=== PATIENT | female | born 1950 | race Caucasian/White ===

== ENCOUNTER 2024-10-25 13:59 | Emergency (ER) | payer MEDICARE, SELFPAY ==
--- OUTSIDE RECORDS SUMMARY | 2024-10-25 14:09 | XMS_ITS | Clinical Summary ---
Author Organization [facility] Address [address] [place] [address] Phone Care Team Providers Care Secretary Board Of Commissioners Name Role Phone Dorian Barbour MD Primary Care Provider [phone] Lewis Guy MD Unavailable Allergies No known active allergies Medications levothyroxine (SYNTHROID) 150 MCG Tablet Take 150 mcg by mouth daily. Active traMADol (ULTRAM) 50 MG Tablet Take 50 mg by mouth every 6 hours as needed for Pain. Active Mometasone Furo-Formoterol Fum (DULERA) 200-5 MCG/ACT Aerosol take 2 Puffs by inhalation 2 times daily. 1 Inhaler 5 6 Active Additional Information Patient not taking.Reported on 06/25/2023 Omeprazole 20 MG Tablet Delayed Response Take by mouth. Activ e gabapentin (NEURONTIN) 300 MG Capsule Take 300 mg by mouth 3 times daily. Active Bismuth 262 MG Chewable Tablet 3 PO QID FOR 10 DAYS 120 Tab 9 Active OXYGEN CONCENTRATOR 3 L by Does not apply route. Use as directed Active clobetasol (TEMOVATE) 0.05 % Cream Apply 2 times daily. Application Site Active albuterol (PROVENTIL, VENTOLIN) (2.5 MG/3ML) 0.083% Nebulizer SolnIndications: Centrilobular emphysema (HCC) 3 mL by Nebulization route every 4 hours as needed for Wheezing, Shortness of Breath or Cough. 360 mL 6 4 Active Kerendia 10 MG Tablet Take 1 Tablet by mouth daily. Active warfarin (COUMADIN) 3 MG Tablet Take 1 Tablet by mouth daily. HOLD dose 02/10, then resume on 02/11. Get INR check on 02/12 90 Tablet 4 Active furosemide (LASIX) 40 MG Tablet Take 1 Tablet by mouth daily. 90 Tablet 4 Active Fluticasone-Umec lidin-Vilant (Trelegy Ellipta) 100-62.5-25 MCG/ACT AEROSOL POWDER, BREATH ACTIVATEDIndicat ions:Centrilobul ar emphysema (HCC) take 1 Puff by inhalation daily. 5 Active Active Problems Problem Noted Date Diagnosed Date Chronic respiratory failure with hypoxia 017 Centrilobular emphysema 01/04/2016 Chronic diastolic congestive heart failure 01/03 Morbid obesity due to excess calories 01/04/2016 Atrial flutter 01/04/2016 SOB (shortness of breath) 01/04/2016 HEAVEN (obstructive sleep apnea) 01/04/2016 Resolved Problems Problem Noted Date Diagnosed Date Resolved Date COPD exacerbation 02/11/2024 02/11/2024 Pneumonia 02/11/2024 02/11/2024 Acute on chronic respiratory failure with hypoxia and hypercapnia 02/09/2024 02/11/2024 Immunizations Immunization Administration Dates Next Due Pneumococcal conjugate PCV20 , polysaccharide GBL801 conjugate, adjuvant, PF 02/11/2024 Family History Medical History Relation Name Comments Lung Cancer Brother Cancer Mother liver Breast Cancer Sister 1 Colon Cancer Sister 2 Relation Name Status Comments Brother Mother Sister 1 Sister 2 Social History Tobacco Use Types Packs/Day Years Used Date Smoking Tobacco: Never Smokeless Tobacco: Never Tobacco Cessation:Counseling Given: No Alcohol Use Standard Drinks/Week Comments Yes 0 (1 standard drink = 0.6 oz pur e alcohol) [facility] Utilities Answer Date Recorded In the past 12 months has [employer], [employer], oil, or water [employer] threatened to shut off services in your home? No 02/09/2024 Social Connection and Isolation Panel Answer Date Recorded In a typical week, how many times do you talk on the phone with family, friends, or neighbors? More than three times a week 02/09/2024 How often do you get togethe r with friends or relatives? Never 02/09/2024 How often do you attend chur ch or voodoo services? Never 02/09/2024 Do you belong to any clubs o r organizations such as bahai groups, unions, fraternal or athletic groups, or school groups? No 02/09/2024 How often do you attend meet ings of the clubs or organizations you belong to? Never 02/09/2024 Are you , , di vorced, , never , or living with a partner? 02/09/2024 AUDIT-C Answer Date Recorded Q1: How often do you have a drink containing alc ohol? Monthly or less 02/09/2024 Q2: How many drinks containi ng alcohol do you have on a typical day when you are drinking? 1 or 2 02/09/2024 Q3: How often do you have si x or more drinks on one occasion? Never 02/09/2024 Overall Financial Resource Strain (CARDIA) Answe r Date Recorded How hard is it for you to pa y for the very basics like food, housing, medical care, and heating? Not hard at all 02/09/2024 [facility] - Occupational Stress Questionnaire Answer Date Recorded Do you feel stress - tense, restless, nervous, or anxious, or unable to sleep at night because your mind is troubled all the time - these days? Not at all 02/09/2024 Exercise Vital Sign Answer Date Recorde d On average, how many days pe r week do you engage in moderate to strenuous exercise (like a brisk walk)? 0 days 02/09/2024 On average, how many minutes do you engage in exercise at this level? 0 min 02/09/2024 Hunger Vital Sign Answer Date Recorded Within the past 12 months, y ou worried that your food would run out before you got the money to buy more. Never true 02/09/20 24 Within the past 12 months, t he food you bought just didn't last and you didn't have money to get more. Never true 02/09/2024 PRAPARE - Transportation Answer Date Re corded In the past 12 months, has l ack of transportation kept you from medical appointments or from getting medications? No 01/13 In the past 12 months, has l ack of transportation kept you from meetings, work, or from getting things needed for daily living? No 02/09/2024 Housing Stability Vital Sign Answer Antonio e Recorded In the last 12 months, was t here a time when you were not able to pay the mortgage or rent on time? No 02/09/2024 In the past 12 months, how m any times have you moved where you were living? 1 02/09/2024 At any time in the past 12 m [facility], were you homeless or living in a skilled nursing (including now)? No 02/09/2024 Sexually Active Control Partners Comments Not Currently Comments No Sex and Gender Information Value Date Recorded Sex Assigned at Not on file Legal Sex Female 11:01 PM CDT Gender Identity Not on file Sexual Orientation Not on file Last Filed Vital Signs Vital Sign Reading Time Taken Comments Blood Pressure 128/70 06/23/2024 12:57 PM FORM BUILDER Pulse 90 06/23/2024 12:57 PM FORM BUILDER Temperature 36.2 C (97.2 F) 06/23/2024 12:57 PM FORM BUILDER Respiratory Rate 14 06/23/2024 12:57 PM FORM BUILDER Oxygen Saturation 91% 06/23/2024 12:57 PM FORM BUILDER Inhaled Oxygen Concentration - - Weight 97.8 kg (215 lb 9.6 oz) 06/23/2024 12:57 PM FORM BUILDER Height 157.5 cm (5' 2) 06/23/2024 12:57 PM FORM BUILDER Body Mass Index 39.43 06/23/2024 12:57 PM FORM BUILDER Plan of Treatment Upcoming Encounters Date Type Department Care Team (Late st Contact Info) Description 06/22/2025 10:00 AM FORM BUILDER Office Visit [facility] - Pulmonology & Sleep Medicine [facility] [address] [place] [phone] Lewis Guy MD [address] [place] [id number] Health Maintenance Due Date Last Done Comments DEXA Bone Density 1950 Hepatitis C Virus (HCV) Screening 1950 TdaP Immunization 1950 Colonoscopy 1997 Immunochemical Fecal Occult Blood 1997 Zoster Immunization (1 of 2) 2002 Respiratory Syncytial Virus (RSV) Immunization (Adult) (1 - Risk 60-74 years 1-dose series) 2012 Mammogram 11/21/2016 11/22/2015 Cologuard 07/03/2021 07/03/2018 Colorectal Cancer Screening 07/03/2021 SARS-COV-2 Immunization ( season) 2024 07/19/2020, 06/21/2020 Influenza Immunization (Seas on Ended) 2025 Pneumococcal Immunization (5 0+ years) Completed 02/11/2024, 09/17/2015 Pneumococcal Immunization Combined Discontinued 02/11/2024, 09/17/2015 Hepatitis B Immunization Aged Out No longer eligible based on patient's age to complete this topic Human Papillomavirus (HPV) Immunization Aged Out No longer eligible based on patient's age to complete this topic Meningococcal Immunization (ACWY) Aged Out No longer eligible based on patient's age to complete this topic Rotavirus Immunization Aged Out No lo nger eligible based on patient's age to complete this topic Procedures Procedure Name Priority Date/Time Associated Diagnosis Comments COLOGUARD Routine 07/03/2018 11:30 AM FORM BUILDER MICHELET SCREENING BILATERAL DIGITAL W CAD Routine 11/22/2015 3:19 PM CDT Encounter for screening mammogram for malignant neoplasm of breast from Last 3 Months or Most Recently Relevant to Health Maintenance Results * COLOGUARD (07/03/2018 11:30 AM FORM BUILDER) Cologuard Negative Not Applicable [employer] Comment: A negative result indicates a low likelihood that a colorectal cancer (CRC) or an advanced adenoma (adenomatous polyps with more advanced pre-malignant features) is present. The chance that a person with a negative Cologuard test has a colorectal cancer is less than 1 in 1500 (negative predictive value >99.9%) or has an advanced adenoma is less than 5.3% (negative predictive value 94.7%). These data are based on a prospective cross-sectional screening study of 10,000 individuals at average risk for colorectal cancer who were screened with both Cologuard and colonoscopy. (Steph Dean al, N Engl J Med 2014;370(14):5832-1783) COLOGUARD RE-SCREENING RECOMMENDATION: Periodic routine colorectal cancer screening is an important part of preventive healthcare for asymptomatic persons at average risk for colorectal cancer. Following a negative Cologuard result, the [employer] [employer] Society and U.S. Multi-Society Task Force screening guidelines recommend a Cologuard re-screening interval of 3 years. References: [employer] [employer] Society (ACS). Colorectal cancer prevention and early detection. [place], [place]: [employer] [employer] Society; [updated 2015Sep 04]. https://www.cancer.org/cancer/rkfok-febtxi-qnyfgp/oudmjatvj-kegclklpa-xiipdys/ acs-recommendations.html. Accessed January 11, 2018; Pradeep ZHAO, Traci PULIDO, Brice CasanovaK, Colorectal Cancer Screening: Recommendations for Physicians and Patients from the U.S. Multi-Society Task Force on Colorectal Cancer Screening, Am J Gastroenterology 2017; 112:8105-4543. Test Type: Composite algorithmic analysis of stool DNA-biomarkers with hemoglobin immunoassay. Quantitative values of individual biomarkers are not reportable and are not associated with individual biomarker result reference ranges. Precautions and Limitations: Cologuard is intended for colorectal cancer screening of adults of either sex, 50 years or older, who are at typical average-risk for colorectal cancer. A negative Cologuard test result does not guarantee the absence of colorectal cancer or advanced adenoma (pre-cancer). Patients with a negative Cologuard test result should be advised to continue participating in a colorectal cancer screening program. Cologuard may produce a positive result, even though a colonoscopy may not find colorectal cancer or precancerous polyps. The performance of Cologuard has been established in a cross sectional study (i.e., single point in time). Performance has not been evaluated in adults who have been previously tested with Cologuard or in patients less than 50 years of age. Cologuard has been approved for use by the U.S. FDA. Cologuard performance data in a 10,000 patient pivotal study using colonoscopy as the reference method can be accessed at the following location: www.[employer]Steps.[employer]/results. Additional description of the Cologuard test process, warnings and precautions can be found at www.cologuardtest.com. Rx Only. Stool specimen (specimen) 07/03/2018 11:30 AM FORM BUILDER 07/04/2018 11:10 AM FORM BUILDER Rylie Stratton COUNTER INSTALLER, WIRE RIGGER BODY FLUIDS & STO OLS ORDERABLES Final Result [employer] [address] [place] [address], * MICHELET SCREENING BILATERAL DIGITAL W CAD (11/22/2015 3:19 PM CDT) Anatomical Region Laterality Modality breast Bilateral Mammography 11/22/2015 2:47 PM CDT Narrative 11/23/2015 9:30 AM CDT - MICHELET SCREENING BILATERAL DIGITAL W CAD BILATERAL DIGITAL SCREENING MAMMOGRAM WITH CAD WITH MEDIOLATERAL OBLIQUE CRANIOCAUDAL: 11/22/2015 The study was acquired using digital technology and interpreted from soft copy. Current study was also evaluated with ICAD version 7.2. CLINICAL: New baseline. Patient has no complaints. No personal history of cancer. Sister with breast cancer. COMPARISONS: No prior exams were available for comparison. BREAST TISSUE:There are scattered fibroglandular densities in both breasts. FINDINGS: No significant masses, calcifications, or other findings are seen in either breast. IMPRESSION: BI-RAD 1 NEGATIVE There is no mammographic evidence of malignancy. A 1 year screening mammogram is recommended. The patient has been or will be contacted. The patient will be entered into a reminder system with a target due date of 1 year for her next screening exam. Electronically signed by: Peter smith/driss:11/22/2015 15:47:32 Recreation Clerk: Laurie Trejo (Geeta), [facility] letter sent: Normal Exam Reading location: [facility] BI-RADS: 1 Negative Procedure Note Peter Razo MD - 11/23/2015 - MICHELET SCREENING BILATERAL DIGITAL W CAD BILATERAL DIGITAL SCREENING MAMMOGRAM WITH CAD WITH MEDIOLATERAL OBLIQUE CRANIOCAUDAL: 11/22/2015 The study was acquired using digital technology and interpreted from soft copy. Current study was also evaluated with ICAD version 7.2. CLINICAL: New baseline. Patient has no complaints. No personal history of cancer. Sister with breast cancer. COMPARISONS: No prior exams were available for comparison. BREAST TISSUE:There are scattered fibroglandular densities in both breasts. FINDINGS: No significant masses, calcifications, or other findings are seen in either breast. IMPRESSION: BI-RAD 1 NEGATIVE There is no mammographic evidence of malignancy. A 1 year screening mammogram is recommended. The patient has been or will be contacted. The patient will be entered into a reminder system with a target due date of 1 year for her next screening exam. Electronically signed by: Peter Razo M.D. bs/driss:11/22/2015 15:47:32 Recreation Clerk: Laurie Trejo (R), [facility] letter sent: Normal Exam Reading location: [facility] BI-RADS: 1 Negative us Dorian Barbour MD IMG MAMMO ORDERABLES Final Re sult from Last 3 Months or Most Recently Relevant to Health Maintenance Insurance MEDICARE C [employer] [facility] Member Subscriber Plan / Payer (Ef fective 2022-Present) Name:Rosi Rodriges Relation to Subscriber:Self Name:Rosi Rodriges Payer ID:[id number] Group ID:[id number] Type:Not on file Address: [place] [phone] Advance Directives * No CPR-Selective Treatment (Latest Code Status on File) Date Activated Date Inactivated Comments 02/09/2024 4:29 PM No CPR - Selec tive Treatment: FULL ARREST: Do Not Attempt Resuscitation. PRE-ARREST: DO NOT USE INTUBATION OR MECHANICAL VENTILATION, but may use basic medical treatment like CPAP or BiPAP, antibiotics, IV fluids, oxygen, etc. Avoid care in ICU setting. Question Answer Comments Physician documentation made in notes? Yes Care Teams Secretary Board Of Commissioners Relationship Specialty Start Date End Date Dorian Barbour MD [address] [place] [address] PCP - General Internal Medicine 06/30/15 Lewis Guy MD [address] [place] [address] Consulting Physician Pulmonary Disease 06/08/22
--- OUTSIDE RECORDS SUMMARY | 2024-10-25 14:09 | XMS_ITS | CONTINUITY OF CARE DOCUMENT ---
Author Name antelmo rodriges Address Unknown Organization [facility] Address [address] [place] [address] Phone [phone] Care Team Providers Care Emergency Preparedness Coordinator Name Role Phone Porfirio Almonte MD Unavailable [phone] MARLEEN DEVINE MD Unavailable [phone] MARLEEN DEVINE MD Unavailable [phone] PROBLEMS Condition Status Date Provider Notes Screening active Porfirio Almonte MD Atrial Fibrillation active Porfirio Navarro Congestive Heart Failure active Porfirio tejeda MD C O P D active Porfirio Almonte MD Hypothyroidism active Porfirio Almonte MD HEAVEN - On CPAP active Porfirio Almonte MD Restless leg syndrome active Porfirio Almonte MD ENCOUNTERS Date Type Provider Location Encounter Diag nosis - In-person encounter Office Visit Porfirio Almonte MD [facility] - In-person encounter Office Visit Porfirio Almonte MD [facility] - In-person encounter Office Visit Porfirio Almonte MD [facility] Restless leg syndrome - In-person encounter Office Visit Porfirio Almonte MD [facility] ScreeningAtrial FibrillationCongestive Heart FailureC O P DHypothyroidismOSA - On CPAP VITAL SIGNS Date Observation Value Provider Body Mass Index (Ratio) 42.43 kg/m2 Summer ssa Puhse blood pressure, diastolic 90 mm[Hg] Li nkLogic blood pressure, systolic 149 mm[Hg] Baylee kLogic pulse rate 83 /min Kennedy y blood pressure, cuff size regular Ja rret blood pressure, diastolic 90 mm[Hg] Ja rret blood pressure, systolic 149 mm[Hg] [facility] Inhaled O2 3 L/min [facility] y oxygen saturation, oximetry 91 % [facility] respiratory rate E&M 16 /min [facility] weight E&M 232 [lb_av] [facility] height E&M 62 [in_i] [facility] y Body Mass Index (Ratio) 39.14 kg/m2 Dana Almonte MD blood pressure, cuff size regular Ke rri Gruenenfelder blood pressure, diastolic 90 mm[Hg] Ke rri Gruenenfelder blood pressure, systolic 142 mm[Hg] Torrey ri Bernabenenfelder oxygen saturation, oximetry 92 % Carley Gruenenfelder respiratory rate E&M 12 /min Carley G ruenenfelder pulse rate 97 /min Carley Gruenenfe lder weight E&M 214 [lb_av] Carley Gruenenfe lder height E&M 62 [in_i] Carley Gruenenfe lder Body Mass Index (Ratio) 42.61 kg/m2 Stephy López blood pressure, cuff size large Ke rri Gruenenfelder blood pressure, diastolic 91 mm[Hg] Hamzah sepulvedai Januszrios blood pressure, systolic 137 mm[Hg] Torrey [facility] oxygen saturation, oximetry 93 % Maeve Wayland respiratory rate E&M 18 /min Quincylan linder Wayland pulse rate 82 /min Maeve Wayland weight E&M 233 [lb_av] Meave Wayland height E&M 62 [in_i] Maeve Wayland Inhaled O2 3 L/min Maeve Wayland Body Mass Index (Ratio) 45.72 kg/m2 Dana Almonte MD blood pressure, diastolic 80 mm[Hg] Melissa nkLogbeatrice blood pressure, systolic 130 mm[Hg] Baylee kLogbeatrice blood pressure, cuff size large Tr lincoln Cristina blood pressure, diastolic 80 mm[Hg] Tr lincoln Cristina blood pressure, systolic 130 mm[Hg] Aleshia Cristina oxygen saturation, oximetry 81 % Yonathan Cristina respiratory rate E&M 18 /min Yonathan Cristina pulse rate 84 /min Yonathan Cristina weight E&M 250 [lb_av] Yonathan Cristina height E&M 62 [in_i] Yonathan Cristina ALLERGIES No Known Drug Allergies HISTORY OF MEDICATION USE Medication Status Instructions Dates Provider Indications Com ments warfarin 2 mg tablet active Take 1 tablet by mouth every evening on Mondays & Fridays [facility] levothyroxine 125 mcg tablet active TAKE 1 TABLET BY MOUTH ONCE DAILY furosemide 40 mg tablet active TAKE 1 TABLET BY MOUTH EVERY DAY gabapentin 300 mg capsule active TAKE 1 CAPSULE BY MOUTH EVERY DAY [facility] Levo-T 125 mcg tablet completed - 9 Yonathan Cristina warfarin 3 mg tablet active Take 1 tablet by mouth every evening on Sun,Sun,,Sat ,Sun. Kennedy tramadol 50 mg tablet active 1 tablet every six hours for pain Kennedy penicillin V potassium 500 mg tablet completed - 9 Yonathan Cristina SOCIAL HISTORY Date Observation Value Provider personal history of marijuana use no Danasagar Medinamiglia [facility] drug use no Danasagar Medinamig tabby [facility] alcohol use no Dana Ventimig tabby [facility] smoking status Never smoker Dana Armstrong iglia [facility] social history E&M S moking History: P lenny has never smoked. Porfirio Almonte MD social history reviewed E&M revi ewed - no changes required Porfirio Almonte MD smoking status Never smoker Carley Ishmaelmarisolrobbi melgar social history E&M S moking History: Tyler galvez has never smoked. Porfirio Almonte MD social history reviewed E&M revi ewed - no changes required Porfirio Almonte MD smoking status Never smoker Maeve Islas jasmin number of grandchildren Porfirio Almonte MD social history reviewed E&M revi ewed - no changes required Porfirio Almonte MD social history E&M S moking History: Tyler galvez has never smoked. Porfirio Almonte MD smoking status Never smoker Yonathan byrne INSURANCE PROVIDERS Payer name Policy type / Coverage type [place] red libertarian ID [employer] MEDICARE GOLD ADVANTAGE HMO Medicare [id number] [facility] Commercial insurance comp any [id number] ADVANCE DIRECTIVES Name Date DISCUSSED - NO DECISION MADE TREATMENT PLAN Date Name Performer [id number],S, O n gabapentin. Porfirio Almonte MD [id number],S, O n replacement therapy. Porfirio Almonte MD [id number],S, T he patient is using CPAP on a regular basis. The patient has been benefiting from therapy and should continue use. Porfirio Almonte MD [id number],C, N o SOB. Uses supplemental O2 when her O2 is 90% or less. Porfirio Almonte MD [id number],C W ell compensated. Most recent echo showed EF 55%. Continues on Lasix Porfirio Almonte MD [id number],S, O n warfarin anticoagulation. PCP manages INR. In sinus tachycardia Porfirio Almonte MD [id number],C, O n gabapentin. Porfirio Almonte MD [id number],S, T he patient is using CPAP on a regular basis. The patient has been benefiting from therapy and should continue use. Porfirio Almonte MD [id number],S, O n replacement therapy. Porfirio Almonte MD [id number],Anival W ell compensated. She did not obtain the echo at last visit, we will reschedule. Continues on Lasix Porfirio Almonte MD [id number],S, O n warfarin anticoagulation. In sinus rhythm Porfirio Almonte MD [id number],S, R eferred for management of diastolic CHF. She appears well compensated at present. We will check an echocardiogram to evaluate wall motioin and LVF. Porfirio Almonte MD [id number],S, O n replacement therapy. Porfirio Almonte MD [id number],S, T he patient is using CPAP on a regular basis. The patient has been benefiting from therapy and should continue use. Porfirio Almonte MD [id number],S, O n warfarin anticoagulation. Porfirio Almonte MD [id number],S, R eferred for management of diastolic CHF. She appears well compensated at present. Porfirio Almonte MD Cardiology:on chronic O2 [facility] Cardiology:No increa sing SOB or edema L ast echo showed EF of 55% with mild LVH H er updated medication list for this problem includes: Furosemide 40 Mg Tablet (Furosemide) ..... Take 1 tablet by mouth every day Warfarin 3 Mg Tablet (Warfarin) ..... Take 1 tablet by mouth every evening on sun,sun,,sat,sun. Warfarin 2 Mg Tablet (Warfarin) ..... Take 1 tablet by mouth every evening on mondays & fridays [facility] Cardiology:rate cont rolled. appears chronic c ontinues on warfarin for AC h er primary follows INR H er updated medication list for this problem includes: Warfarin 3 Mg Tablet (Warfarin) ..... Take 1 tablet by mouth every evening on sun,sun,,sun,sun. Warfarin 2 Mg Tablet (Warfarin) ..... Take 1 tablet by mouth every evening on mondays & fridays [facility] Cardiology:on replacement therap y [facility] Cardiology:The patie nt is using CPAP on a regular basis. The patient has been benefiting from therapy and should continue use. Danasagar Randall [facility] Cardiology: O n gabapentin. Porfirio Almonte MD Cardiology: O n replacement therapy. Porfirio Almonte MD Cardiology: T he patient is using CPAP on a regular basis. The patient has been benefiting from therapy and should continue use. Porfirio Almonte MD Cardiology: N o SOB. Uses supplemental O2 when her O2 is 90% or less. Porfirio Almonte MD Cardiology: W ell compensated. Most recent echo showed EF 55%. Continues on Lasix Porfirio Almonte MD Cardiology: O n warfarin anticoagulation. PCP manages INR. In sinus tachycardia Porfirio Almonte MD Cardiology: O n gabapentin. Porfirio Almonte MD Cardiology: T he patient is using CPAP on a regular basis. The patient has been benefiting from therapy and should continue use. Porfirio Almonte MD Cardiology: O n replacement therapy. Porfirio Almonte MD Cardiology: W ell compensated. She did not obtain the echo at last visit, we will reschedule. Continues on Lasix Porfirio Almonte MD Cardiology: O n warfarin anticoagulation. In sinus rhythm Porfirio Almonte MD Cardiology: R eferred for management of diastolic CHF. She appears well compensated at present. We will check an echocardiogram to evaluate wall motioin and LVF. Porfirio Almonte MD Cardiology: O n replacement therapy. Porfirio Almonte MD Cardiology: T he patient is using CPAP on a regular basis. The patient has been benefiting from therapy and should continue use. Porfirio Almonte MD Cardiology: O n warfarin anticoagulation. Porfirio Almonte MD Cardiology: R eferred for management of diastolic CHF. She appears well compensated at present. Porfirio Almonte MD Date Name Complete Echo Complete Echo Complete Echo HISTORY OF PROCEDURES Procedure Date Procedure Name Provider Procedure Notes S tatus EKG Porfirio Almonte MD complet ed EKG Porfirio Almonte MD complet ed EKG Porfirio Almonte MD complet ed EKG Porfirio Almonte MD complet ed
--- OUTSIDE RECORDS SUMMARY | 2024-10-25 14:09 | XMS_ITS | Continuity of Care Document ---
[facility] Organization [facility] Address [address] [place] [address] Phone Care Team Providers Care Flame Hardening Machine Setter Name Role Phone Ed Casper MD Unavailable Unavailable Advance Directives Directive Yes / No Effective Date File Name No Information Encounters Encounter Description Practice Location Reason(s) For Visit Diagnoses Date Provider Providers Copied on Encounter [facility], [address], [place], [place], [id number], tel:[phone] [facility] No Information Pennie Ward. [address], [facility] [address], [place], [place], [employer], [place]. tel:[phone] [facility], [address], [place], [place], [id number], tel:[phone] [facility] Dilation of biliary tract Pennie Ward. [address], [place], [address], . tel: [phone] Family History Family Member Type Diagnosis Age At Onset No Information Payers Payer name Insurance type Covered green party ID Authoriza tion(s) No Information Social History Type Description Quantity Date Captured Comments Sex Female Smoking Status No Information Chief Complaint And Reason For Visit No Information Reason For Referral Reason For Referral No Information History Of Present Illness Encounter Date Complaint History Of Prese nt Illness No Information Functional Status Date Functional Assessmen t No Information Instructions Date Instruction Additional Infor mation No Information Assessments Type Assessment Date No Information Patient Care Teams Name Effective Dates (start - stop) Status Members No Information
--- OUTSIDE RECORDS SUMMARY | 2024-10-25 14:10 | XMS_ITS | Clinical Summary ---
Author Organization [facility] Address [address] [place] [address] Care Team Providers Care Shingle Bolt Cutter Name Role Phone Dorian Barbour MD Primary Care Provider [phone] Tariq Cosme MD Unavailable Unavailable Source Comments [facility],non-owned Affiliates and Associated Physician Practices is amultiple site organization consisting of ambulatory clinics and hospital sitesin [place], [place], [place] and [place]. This disclosure is being madepursuant to the Care Everywhere program and may not contain all information available regarding this patient. Last updated 18.[facility] Allergies No known active allergies Medications * Be aware that medications may not be up to date on this document. Alwaysverify current medications with the patient. furosemide (LASIX) 40 MG tablet Take 60 mg by mouth once daily Active traMADol (ULTRAM) 50 MG tablet 50 mg 6 Active levothyroxine (SYNTHROID) 150 MCG tablet 150 mg once daily 6 Active betamethasone dipropionate (DIPROSONE) 0.05 % ointment Apply 1 Dose to affected area as needed 8 Active gabapentin (NEURONTIN) 300 MG capsule Take 30 mg by mouth as needed 8 Active spironolactone (ALDACTONE) 25 MG tablet Take 25 mg by mouth once 8 Active apixaban (ELIQUIS) 5 MG tablet Take 1 tablet by mouth 2 times daily 180 tablet 4 9 Active Active Problems Problem Noted Date Diagnosed Date HEAVEN on CPAP 11/16/2017 COPD, severe 11/16/2017 Typical atrial flutter 06/04/2015 Possible remote ASD repair 06/04/2015 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 06/04/2015 Hypothyroidism 04/22/2015 Resolved Problems Problem Noted Date Diagnosed Date Resolved Date Emphysema of lung, severe resting hypoxemia 04/22/2015 04/22/2015 Emphysema of lung 04/22/2015 11/16/2017 Atrial flutter 04/20/2015 06/04/2015 Family History Medical History Relation Name Comments MS Mother Stroke Sister Relation Name Status Comments Mother Sister Social History Tobacco Use Types Packs/Day Years Used Date Smoking Tobacco: Former Cigarettes Smokeless Tobacco: Never Tobacco Cessation:Counseling Given: Yes Alcohol Use Standard Drinks/Week Comments Yes 0 (1 standard drink = 0.6 oz pur e alcohol) occasional Comments Unknown Sex and Gender Information Value Date Recorded Sex Assigned at Not on file Legal Sex Female 11:31 AM WASTE WATER OPERATOR Gender Identity Not on file Sexual Orientation Not on file Last Filed Vital Signs Vital Sign Reading Time Taken Comments Blood Pressure 114/69 11/21/2019 9:28 AM CDT Pulse 62 11/21/2019 9:28 AM CDT Temperature 35.6 C (96 F) 04/26/2015 7:57 AM WASTE WATER OPERATOR Respiratory Rate 14 11/21/2019 9:28 AM CDT Oxygen Saturation 91% 11/21/2019 9:28 AM CDT 3L of O2 Inhaled Oxygen Concentration - - Weight 101.7 kg (224 lb 3.2 oz) 11/21/2019 9:28 AM CDT Height 157.5 cm (5' 2) 11/21/2019 9:28 AM CDT Body Mass Index 41.01 11/21/2019 9:28 AM CDT Plan of Treatment Health Maintenance Due Date Last Done Comments BONE DENSITY TESTING 1950 COLOGUARD (AGES 45-75) - COL ON CA SCREENING 1950 COLON MONITORING 1952 COLONOSCOPY - COLON CA SCREENING 1952 CT COLONOGRAPHY - COLON CA SCREENING 1950 Colorectal Cancer Screening 1950 FIT - COLON CA SCREENING 1952 FLEX SIG - COLON CA SCREENING 1952 LIPID TESTING 1950 MAMMOGRAM 1950 HEPATITIS C SCREENING 04/26/1970 DTAP/TDAP/TD VACCINES (1 - Tdap) 1971 PNEUMOCOCCAL VACCINE 50+ (1 of 2 - PCV) 1971 ZOSTER VACCINE (1 of 2) 2002 Respiratory Syncytial Virus (RSV) Vaccine Pt: or over 60 yrs (1 - Risk 60-74 years 1-dose series) 2012 SCREENING FOR DIABETES 11/21/2019 04/26/2015 COVID-19 VACCINE (1 - 2023-2 5 season) 2024 DEPRESSION SCREENING 05/14/2024 INFLUENZA VACCINE (Season Ended) 2025 HEPATITIS B VACCINE Aged Out No longe r eligible based on patient's age to complete this topic HIB VACCINE Aged Out No longer eligi ble based on patient's age to complete this topic HPV VACCINE Aged Out No longer eligi ble based on patient's age to complete this topic MENINGOCOCCAL (Group B) VACC INE SHARED DECISION-MAKING Aged Out No longer eligibl e based on patient's age to complete this topic MENINGOCOCCAL GROUPS A/C/Y/W VACCINE Aged Out No longer eligible b ased on patient's age to complete this topic Procedures Procedure Name Priority Date/Time Associated Diagnosis Comments BASIC METABOLIC PANEL (CALCIUM TOTAL) STAT 04/26/2015 7:24 AM WASTE WATER OPERATOR Pre-procedural cardiovascular examination from Last 3 Months or Most Recently Relevant to Health Maintenance Results * (ABNORMAL) BASIC METABOLIC PANEL (CALCIUM TOTAL) (04/26/2015 7:24 AM WASTE WATER OPERATOR) Glucose 93 74 - 106 mg/dL 04/26/2015 7:56 AM [facility] Sodium 141 136 - 145 mmol/L 04/26/2015 7:56 AM [facility] Potassium 4.4 3.5 - 5.1 mmol/L 04/26/2015 7:56 AM [facility] Chloride 101 98 - 107 mmol/L 04/26/2015 7:56 AM [facility] CO2 33(H) 22 - 31 mmol/L 04/26/2015 7:56 AM [facility] Calcium 10.2(H) 8.5 - 10.1 mg/dL 04/26/2015 7:56 AM [facility] Anion Gap 7 5 - 20 mmol/L 04/26/2015 7:56 AM [facility] BUN 17 7 - 21 mg/dL 04/26/2015 7:56 AM [facility] Creatinine 0.97 0.50 - 1.30 mg/dL 04/26/2015 7:56 AM WASTE WATER OPERATOR [facility] eGFR by MDRD 58(L) >60 mL/min/1.7 3m2 04/26/2015 7:56 AM WASTE WATER OPERATOR [facility] eGFR by MDRD >60 >60 mL/min/1.7 3m2 04/26/2015 7:56 AM WASTE WATER OPERATOR [facility] Blood BLOOD SPECIMEN / Unknown Lab Venipuncture / Unknown 04/26/2015 7:24 AM WASTE WATER OPERATOR 04/26/2015 7:37 AM WASTE WATER OPERATOR us Tariq Cosme MD LAB - CHEMISTRY ORDERABLES Fin al Result [facility] [address] [place] [address] from Last 3 Months or Most Recently Relevant to Health Maintenance Insurance MEDICARE [facility] MEDICARE COMMERCIAL GENERIC Advance Directives * Full Code (Latest Code Status on File) Date Activated Date Inactivated Comments 04/26/2015 9:21 AM 04/26/2015 2:09 PM * Full Code Date Activated Date Inactivated Comments 04/26/2015 9:16 AM 04/26/2015 9:21 AM Care Teams Shingle Bolt Cutter Relationship Specialty Start Date End Date Dorian Barbour MD [address] [place] [address] PCP - General Internal Medicine 11/17/16 Tariq Cosme MD [address] [place] [address] Cardiovascular Disease 11/21/19
--- OUTSIDE RECORDS SUMMARY | 2024-10-25 14:10 | XMS_ITS | Data Portability ---
Author Organization [facility] Address [address] [facility] [place] [address] Care Team Providers Care Pewter Finisher Name Role Phone NILS DON Manager Supply Unavailable PREETHI MARLOW Primary Care Provider Unavailabl e Assessment Encounter Date Assessment Date Assessment LastModified by Organization Details LastModified Time 07/01/2024 07/01/2024 Paroxysmal versu s persistent atrial fibrillation: No symptom awareness. Discussed options anti coagulation. Previous cost concerns with NOAC. After shared decision-making, will transition from warfarin to rivaroxaban 20 mg daily. Reviewed risk of major/minor bleeding versus thromboembolic risk reduction with atrial fibrillation. Encouraged to obtain labs in the next 48 hours and not take any warfarin. We will reach out to her with lab results to determine timing of resumption of Dosepak. Obtain CBC/CMP/thyroid studies Mixed hyperlipidemia : Possible history of coronary artery disease although patient not aware and previous cardiology records somewhat equivocal. Initiate atorvastatin 20 mg daily. Check follow-up CMP and lipid panel. Chronic diastolic heart failure: Continue current dose of furosemide and potassium. Obtain renal panel in light of CKD. Discussed regarding SGLT2 inhibitors which currently they wish to hold off due to cost concerns. Obesity: Diet/exercise reinforced for weight management and cardiovascular risk reduction. HEAVEN: Follows with sleep medicine. Reviewed risks between untreated sleep apnea and cardiovascular comorbidities. Hypertension: Low-sodium diet, ambulatory blood pressure monitoring. At follow-up visits in light of CKD we will consider addition of angiotensin modulating agents. Request follow-up in 6 weeks with labs prior. Not available 07/01/2024 13:44:37 08/12/2024 08/12/2024 Atrial fibrillation: Rate controlled. No symptom awareness. Reviewed rationale, benefits, risks, alternative anticoagulation for thromboembolic risk reduction versus left atrial appendage occlusion. Continue current dose of rivaroxaban 15 mg daily dose to GFR after shared decision-making. Chronic diastolic heart failure: Furosemide 40 mg daily with the option of taking extra 40 mg based on volume assessment which patient is well aware of. Encouraged to take potassium with every dose of furosemide. CKD stage IIIB: Has upcoming appointment with Nephrology. Encouraged hydration with 64 oz of water daily and avoiding of nonsteroidals. Mixed hyperlipidemia: Labs from June 2024 reviewed which show LDL 107. Continue current dose of atorvastatin. Wishes to focus on diet/exercise which is reasonable. Plans for upcoming lipid panel at annual physical with PCP. Per patient request, plan follow-up in 6 months and p.r.n. [email or web address] Not available 08/12/2024 14:34:56 Plan of Treatment Reminders Order Date Submit Date Provider Last Modified By Organization Details Last Modified Time Details Appointments ANY 15 2024 08:00A M DANIELA PRATHER Not available Not available Not available ANY 2024 08:30A M Salvador Lundberg MD Not available Not available Not available Lab drug screen, 14 drugs (detectim ed), urine 2024 025 [facility], [address] [facility] [facility] [address], [place], [address], 09/21/2024 07:17:33 TSH, serum or plasma 2024 025 [email or web address] [facility], [address] [facility], [facility] [address], [place], [address], 07/22/2024 10:21:05 CBC 2024 025 [facility], [address] [facility], [place], [address], 07/04/2024 03:36:49 lipid panel, serum 2024 025 [facility], [address] [facility], [place], [address], 07/04/2024 03:36:46 CMP, serum or plasma 2024 025 [facility], [address], [place], [address], 07/04/2024 03:36:47 HbA1c (hemoglob in A1c), blood 2024 025 [facility], [address], [place], [address], 07/04/2024 03:36:48 drug screen, 14 drugs (detectim ed), urine 2024 025 [facility], [address], [place], [address], 08/06/2024 12:31:19 BNP (B-type natriuret ic peptide), serum or plasma 2024 025 [facility], [address], [place], [address], 07/04/2024 08:27:35 BMP, serum or plasma 2024 025 [facility], [address], [place], [address], 07/04/2024 03:08:43 TSH, ultra-sen sitive, serum 2024 025 [facility], [address], [place], [address], 05/30/2024 10:37:13 CBC w/ auto diff 2024 025 [facility], [address], [place], [address], 05/30/2024 10:37:14 CMP, serum or plasma 2024 025 [facility], [address], [place], [address], 05/30/2024 10:37:11 Referral cardiolog ist referral 2024 025 ISRAEL Lundberg MD, [address], [place], [address], 07/01/2024 15:14:54 Procedures None recorded. Surgeries None recorded. Imaging None recorded. Medication Orders penicilli n V potassium 500 mg tablet 2024 025 [facility] [id number], [address], 09/11/2024 10:53:42 gabapenti n 300 mg capsule 2024 025 [facility] [address], [address], 09/11/2024 10:53:42 furosemid e 40 mg tablet 2024 025 [facility] [address], [address], 08/12/2024 10:00:25 atorvasta tin 20 mg tablet 2024 025 [facility] [address], [address], 07/01/2024 11:55:54 Xarelto 20 mg tablet 2024 025 [id number], [address] [place] [address], [id number], 08/12/2024 09:46:35 warfarin 2 mg tablet 2024 025 [email or web address] [facility] [address], [address], 07/01/2024 11:56:17 gabapenti n 300 mg capsule 2024 025 [facility] [address] [place], [address], 05/29/2024 11:52:59 tramadol 50 mg tablet 2024 025 [facility] [id number] [facility], [address] [place], [address], 05/29/2024 12:17:28 Patient TargetsNo targets recorded. Patient Instructions Encounter Date Encounter Id Patient Instructions Last Modified By Organization Details Last Modified Time 05/29/2024 [id number] labs/f/u in 3 month nsuthan Not available 05/29/2024 11:55:11 06/26/2024 [id number] Plan of care has been discussed with patient including expected therapeutic benefits and potential side effects of prescribed medication and treatments. Patient verbalizes understanding and is in agreement with the plan of care. Patient was instructed to keep all scheduled appointments and contact the clinic for any additional problems. [email or web address] Not available 07/23/2024 09:38:08 08/12/2024 [id number] A healthy lifestyle: care instructions [email or web address] Not available 08/12/2024 09:58:00 09/11/2024 [id number] Plan of care has been discussed with patient including expected therapeutic benefits and potential side effects of prescribed medication and treatments. Patient verbalizes understanding and is in agreement with the plan of care. Patient was instructed to keep all scheduled appointments and contact the clinic for any additional problems. Health Maintenance: - CRC screening (45-75): Negative colofit 02/20/24 - Osteoporosis screening: Due at 65. - Lipid screening (>45 unless additional risk factors): 07/03/24 - HIV: declined - HepC: declined -Eye exam: unknown -Dental Exam: unknown - Immunizations: - Influenza: Due. - PPV 23: 09/17/15 - Tdap/Td (z21xpync): - Zoster (>60):Due at 60. - COVID-19: 07/19/20, 06/21/20, declined -Labs ordered this visit: Females: Pap smear: n/a Mammogram: due declined DEXA: declined [email or web address] Not available 09/11/2024 10:43:03 Reason for Referral [employer] Lif[employer]ard Referral for Co ngestive heart failure Referring Physician: Preethi Marlow, Family Medicine, Encounter Date: 06/26/2024 Results Created Date Observation Date Name Description Value Unit Range Abnormal Flag Note LastModifiedBy Organization Detail LastModifiedTime 05/05/20 24 05/06/2024 PROTH ROMBI N TIME (PT) INR 2.2 0.9-1. 2 above high normal Refer ence inter kevin is for non-a ntico agula aixa patie nts. Sugge sted INR thera peuti c range for Vitam in K antag onist thera py: Stand harshal Dose (mode rate inten sity thera peuti c range ): 2.0 - 3.0 Highe r inten sity thera peuti c range 2.5 - 3.5 Not Available [facility] ([facility]) [address] [place], [address], 05/06/2024 07:10:53 05/05/20 24 05/06/2024 PROTH ROMBI N TIME (PT) prothrombin time 22.4 sec 9.1-12 .0 above high normal Not Available [facility] ([facility]) [address] [place], [address], 05/06/2024 07:10:53 05/29/19 25 05/30/2024 PROTH ROMBI N TIME (PT) INR 1.8 0.9-1. 2 above high normal Refer ence inter kevin is for non-a ntico agula aixa patie nts. Sugge sted INR thera peuti c range for Vitam in K antag onist thera py: Stand harshal Dose (mode rate inten sity thera peuti c range ): 2.0 - 3.0 Highe r inten sity thera peuti c range 2.5 - 3.5 Not Available [facility] ([facility]) [address] [place], [address], 05/30/2024 08:23:33 05/29/19 25 05/30/2024 PROTH ROMBI N TIME (PT) prothrombin time 19.3 sec 9.1-12 .0 above high normal Not Available [facility] ([facility]) [address] [facility] [place], [address], 05/30/2024 08:23:33 05/29/19 25 05/30/2024 COMP. METAB OLIC PANEL (14) glucose 84 mg/dL 70-99 Not Available [facility] ([facility]) [address] [place], [address], 05/30/2024 10:37:11 05/29/19 25 05/30/2024 COMP. METAB OLIC PANEL (14) BUN 25 mg/dL 8-27 Not Available [facility]) [address] [facility] [place], [address], 05/30/2024 10:37:11 05/29/19 25 05/30/2024 COMP. METAB OLIC PANEL (14) creatinine 1.24 mg/dL 0.57-1 .00 above high normal Not Available [facility] ([facility]) [address] [place], [address], 05/30/2024 10:37:11 05/29/19 25 05/30/2024 COMP. METAB OLIC PANEL (14) eGFR 46 mL/mi n/1.7 3 >59 below low normal Not Available [facility] ([facility]) [address] [place], [address], 05/30/2024 10:37:11 05/29/19 25 05/30/2024 COMP. METAB OLIC PANEL (14) BUN/creatini ne ratio 20 12-28 Not Available [facility] [address] [place], [address], 05/30/2024 10:37:11 05/29/19 25 05/30/2024 COMP. METAB OLIC PANEL (14) sodium 140 mmol/ L 134-14 4 Not Available [facility] ([facility]) [address] [place], [address], 05/30/2024 10:37:11 05/29/19 25 05/30/2024 COMP. METAB OLIC PANEL (14) potassium 4.1 mmol/ L 3.5-5. 2 Not Available [facility] ([facility]) [address] [place], [address], 05/30/2024 10:37:11 05/29/19 25 05/30/2024 COMP. METAB OLIC PANEL (14) chloride 98 mmol/ L 96-106 Not Available [facility]) [address] [place], [address], 05/30/2024 10:37:11 05/29/19 25 05/30/2024 COMP. METAB OLIC PANEL (14) carbon dioxide, total 29 mmol/ L 20-29 Not Available [facility] [address] [place], [address], 05/30/2024 10:37:11 05/29/19 25 05/30/2024 COMP. METAB OLIC PANEL (14) calcium 10.1 mg/dL 8.7-10 .3 Not Available [facility] [address] [place], [address], 05/30/2024 10:37:11 05/29/19 25 05/30/2024 COMP. METAB OLIC PANEL (14) protein, total 7.0 g/dL 6.0-8. 5 Not Available [facility]) [address] [place], [address], 05/30/2024 10:37:11 05/29/19 25 05/30/2024 COMP. METAB OLIC PANEL (14) albumin 3.9 g/dL 3.8-4. 8 Not Available [facility]) [address] [place], [address], 05/30/2024 10:37:11 05/29/19 25 05/30/2024 COMP. METAB OLIC PANEL (14) globulin, total 3.1 g/dL 1.5-4. 5 Not Available [facility]) [address] [facility], [place], [address], 05/30/2024 10:37:11 05/29/19 25 05/30/2024 COMP. METAB OLIC PANEL (14) bilirubin, total 0.6 mg/dL 0.0-1. 2 Not Available [facility]) [address] [facility] [place], [address], 05/30/2024 10:37:11 05/29/19 25 05/30/2024 COMP. METAB OLIC PANEL (14) alkaline phosphatase 120 IU/L 44-121 Not Available [facility]) [address] [facility], [place], [address], 05/30/2024 10:37:11 05/29/19 25 05/30/2024 COMP. METAB OLIC PANEL (14) AST (SGOT) 24 IU/L 0-40 Not Available [facility]) [address] [facility], [place], [address], 05/30/2024 10:37:11 05/29/19 25 05/30/2024 COMP. METAB OLIC PANEL (14) ALT (SGPT) 12 IU/L 0-32 Not Available [facility]) [address] [facility], [place], [address], 05/30/2024 10:37:11 05/29/19 25 05/30/2024 TSH TSH 1.020 uIU/m L 0.450- 4.500 Not Available [facility] ([facility]) [address] [facility], [place], [address], 05/30/2024 10:37:13 05/29/19 25 05/30/2024 CBC WITH DIFFE RENTI AL/PL ATELE T WBC 6.1 x10e3 /uL 3.4-10 .8 Not Available [facility] ([facility]) [address] [facility], [place], [address], 05/30/2024 10:37:14 05/29/19 25 05/30/2024 CBC WITH DIFFE RENTI AL/PL ATELE T RBC 4.48 x10e6 /uL 3.77-5 .28 Not Available [facility]) [address] [facility], [place], [address], 05/30/2024 10:37:14 05/29/19 25 05/30/2024 CBC WITH DIFFE RENTI AL/PL ATELE T hemoglobin 12.8 g/dL 11.1-1 5.9 Not Available [facility] ([facility]) [address] [facility], [place], [address], 05/30/2024 10:37:14 05/29/19 25 05/30/2024 CBC WITH DIFFE RENTI AL/PL ATELE T hematocrit 40.6 % 34.0-4 6.6 Not Available [facility]) [address] [facility], [place], [address], 05/30/2024 10:37:14 05/29/19 25 05/30/2024 CBC WITH DIFFE RENTI AL/PL ATELE T MCV 91 fL 79-97 Not Available [facility] ([facility]) [address] [place], [address], 05/30/2024 10:37:14 05/29/19 25 05/30/2024 CBC WITH DIFFE RENTI AL/PL ATELE T MCH 28.6 pg 26.6-3 3.0 Not Available [facility] ([facility]) [address] [place], [address], 05/30/2024 10:37:14 05/29/19 25 05/30/2024 CBC WITH DIFFE RENTI AL/PL ATELE T MCHC 31.5 g/dL 31.5-3 5.7 Not Available [facility]) [address] [facility], [place], [address], 05/30/2024 10:37:14 05/29/19 25 05/30/2024 CBC WITH DIFFE RENTI AL/PL ATELE T RDW 13.0 % 11.7-1 5.4 Not Available [facility]) [address] [facility], [place], [address], 05/30/2024 10:37:14 05/29/1905/30/2024 CBC WITH DIFFE RENTI AL/PL ATELE T platelets 212 x10e3 /uL 150-45 0 Not Available [facility] ([facility]) [address] [facility], [place], [address], 05/30/2024 10:37:14 05/29/19 25 05/30/2024 CBC WITH DIFFE RENTI AL/PL ATELE T neutrophils 68 % notest ab. Not Available [facility] ([facility]) [address] [facility], [place], [address], 05/30/2024 10:37:14 05/29/19 25 05/30/2024 CBC WITH DIFFE RENTI AL/PL ATELE T lymphs 19 % notest ab. Not Available [facility] ([facility]) [address] [facility], [place], [address], 05/30/2024 10:37:14 05/29/19 25 05/30/2024 CBC WITH DIFFE RENTI AL/PL ATELE T monocytes 8 % notest ab. Not Available [facility] ([facility]) [address] [facility], [place], [address], 05/30/2024 10:37:14 05/29/19 25 05/30/2024 CBC WITH DIFFE RENTI AL/PL ATELE T eos 4 % notest ab. Not Available [facility] ([facility]) [address] [facility], [place], [address], 05/30/2024 10:37:14 05/29/19 25 05/30/2024 CBC WITH DIFFE RENTI AL/PL ATELE T basos 1 % notest ab. Not Available [facility]) [address] [facility], [place], [address], 05/30/2024 10:37:14 05/29/19 25 05/30/2024 CBC WITH DIFFE RENTI AL/PL ATELE T neutrophils (absolute) 4.1 x10e3 /uL 1.4-7. 0 Not Available [facility] ([facility]) [address] [facility], [place], [address], 05/30/2024 10:37:14 05/29/19 25 05/30/2024 CBC WITH DIFFE RENTI AL/PL ATELE T lymphs (absolute) 1.2 x10e3 /uL 0.7-3. 1 Not Available [facility] ([facility]) [address] [facility], [place], [address], 05/30/2024 10:37:14 05/29/19 25 05/30/2024 CBC WITH DIFFE RENTI AL/PL ATELE T monocytes(ab solute) 0.5 x10e3 /uL 0.1-0. 9 Not Available [facility] ([facility]) [address] [facility], [place], [address], 05/30/2024 10:37:14 05/29/19 25 05/30/2024 CBC WITH DIFFE RENTI AL/PL ATELE T eos (absolute) 0.3 x10e3 /uL 0.0-0. 4 Not Available [facility] ([facility]) [address] [facility], [place], [address], 05/30/2024 10:37:14 05/29/19 05/30/2024 CBC WITH DIFFE RENTI AL/PL ATELE T baso (absolute) 0.0 x10e3 /uL 0.0-0. 2 Not Available [facility] ([facility]) [address] [facility], [place], [address], 05/30/2024 10:37:14 05/29/19 25 05/30/2024 CBC WITH DIFFE RENTI AL/PL ATELE T immature granulocytes 0 % notest ab. Not Available [facility]) [address] [facility], [place], [address], 05/30/2024 10:37:14 05/29/1905/30/2024 CBC WITH DIFFE RENTI AL/PL ATELE T immature grans (abs) 0.0 x10e3 /uL 0.0-0. 1 Not Available [facility] ([facility]) [address] [facility], [place], [address], 05/30/2024 10:37:14 06/23/1906/24/2024 PROTH ROMBI N TIME (PT) INR 1.5 0.9-1. 2 above high normal Refer ence inter kevin is for non-a ntico agula aixa patie nts. Sugge sted INR thera peuti c range for Vitam in K antag onist thera py: Stand harshal Dose (mode rate inten sity thera peuti c range ): 2.0 - 3.0 Highe r inten sity thera peuti c range 2.5 - 3.5 Not Available [facility] ([facility]) [address] [facility], [place], [address], 06/24/2024 07:12:40 06/23/1906/24/2024 PROTH ROMBI N TIME (PT) prothrombin time 16.4 sec 9.1-12 .0 above high normal Not Available [facility]) [address] [facility], [place], [address], 06/24/2024 07:12:40 07/03/19 25 07/04/2024 BASIC METAB OLIC PANEL (8) glucose 93 mg/dL 70-99 Not Available [facility] ([facility]) [address] [place], [address], 07/04/2024 03:08:43 07/03/19 25 07/04/2024 BASIC METAB OLIC PANEL (8) BUN 24 mg/dL 8-27 Not Available [facility] ([facility]) [address] [place], [address], 07/04/2024 03:08:43 07/03/19 25 07/04/2024 BASIC METAB OLIC PANEL (8) creatinine 1.40 mg/dL 0.57-1 .00 above high normal Not Available [facility] ([facility]) [address] [place], [address], 07/04/2024 03:08:43 07/03/19 25 07/04/2024 BASIC METAB OLIC PANEL (8) eGFR 40 mL/mi n/1.7 3 >59 below low normal Not Available [facility] ([facility]) [address] [place], [address], 07/04/2024 03:08:43 07/03/19 25 07/04/2024 BASIC METAB OLIC PANEL (8) BUN/creatini ne ratio 17 12-28 Not Available [facility] [address] [place], [address], 07/04/2024 03:08:43 07/03/19 25 07/04/2024 BASIC METAB OLIC PANEL (8) sodium 142 mmol/ L 134-14 4 Not Available [facility] ([facility]) [address] [place], [address], 07/04/2024 03:08:43 07/03/19 25 07/04/2024 BASIC METAB OLIC PANEL (8) potassium 4.2 mmol/ L 3.5-5. 2 Not Available [facility] ([facility]) [address] [place], [address], 07/04/2024 03:08:43 07/03/19 25 07/04/2024 BASIC METAB OLIC PANEL (8) chloride 101 mmol/ L 96-106 Not Available [facility] ([facility]) [address] [place], [address], 07/04/2024 03:08:43 07/03/19 25 07/04/2024 BASIC METAB OLIC PANEL (8) carbon dioxide, total 30 mmol/ L 20-29 above high normal Not Available [facility] ([facility]) [address] [place], [address], 07/04/2024 03:08:43 07/03/19 25 07/04/2024 BASIC METAB OLIC PANEL (8) calcium 10.3 mg/dL 8.7-10 .3 Not Available [facility] ([facility]) [address] [place], [address], 07/04/2024 03:08:43 07/03/19 25 07/04/2024 LIPID PROFI LE cholesterol, total 171 mg/dL 100-19 9 Not Available [facility] ([facility]) [address] [place], [address], 07/04/2024 03:36:46 07/03/19 25 07/04/2024 LIPID PROFI LE triglyceride s 136 mg/dL 0-149 Not Available [facility] [address] [place], [address], 07/04/2024 03:36:46 07/03/19 25 07/04/2024 LIPID PROFI LE HDL cholesterol 40 mg/dL >39 Not Available [facility] [address] [place], [address], 07/04/2024 03:36:46 07/03/19 25 07/04/2024 LIPID PROFI LE VLDL cholesterol mickey 24 mg/dL 5-40 Not Available [facility] [address] [place], [address], 07/04/2024 03:36:46 07/03/19 25 07/04/2024 LIPID PROFI LE LDL chol calc ([facility]) 107 mg/dL 0-99 above high normal Not Available [facility]) [address] [place], [address], 07/04/2024 03:36:46 07/03/19 25 07/04/2024 COMP. METAB OLIC PANEL (14) glucose 88 mg/dL 70-99 Not Available [facility]) [address] [place], [address], 07/04/2024 03:36:47 07/03/19 25 07/04/2024 COMP. METAB OLIC PANEL (14) BUN 25 mg/dL 8-27 Not Available [facility] ([facility]) [address] [place], [address], 07/04/2024 03:36:47 07/03/19 25 07/04/2024 COMP. METAB OLIC PANEL (14) creatinine 1.42 mg/dL 0.57-1 .00 above high normal Not Available [facility] ([facility]) [address] [place], [address], 07/04/2024 03:36:47 07/03/19 25 07/04/2024 COMP. METAB OLIC PANEL (14) eGFR 39 mL/mi n/1.7 3 >59 below low normal Not Available [facility] ([facility]) [address] [place], [address], 07/04/2024 03:36:47 07/03/19 25 07/04/2024 COMP. METAB OLIC PANEL (14) BUN/creatini ne ratio 18 12-28 Not Available [facility] [address] [facility], [place], [address], 07/04/2024 03:36:47 07/03/19 25 07/04/2024 COMP. METAB OLIC PANEL (14) sodium 141 mmol/ L 134-14 4 Not Available [facility]) [address] [facility] [place], [address], 07/04/2024 03:36:47 07/03/19 25 07/04/2024 COMP. METAB OLIC PANEL (14) potassium 4.1 mmol/ L 3.5-5. 2 Not Available [facility]) [address] [facility] [place], [address], 07/04/2024 03:36:47 07/03/19 25 07/04/2024 COMP. METAB OLIC PANEL (14) chloride 100 mmol/ L 96-106 Not Available [facility]) [address] [facility] [place], [address], 07/04/2024 03:36:47 07/03/19 25 07/04/2024 COMP. METAB OLIC PANEL (14) carbon dioxide, total 31 mmol/ L 20-29 above high normal Not Available [facility]) [address] [facility] [place], [address], 07/04/2024 03:36:47 07/03/19 25 07/04/2024 COMP. METAB OLIC PANEL (14) calcium 10.2 mg/dL 8.7-10 .3 Not Available [facility]) [address] [facility] [place], [address], 07/04/2024 03:36:47 07/03/19 25 07/04/2024 COMP. METAB OLIC PANEL (14) protein, total 6.9 g/dL 6.0-8. 5 Not Available [facility] ([facility] [address] [place], [address], 07/04/2024 03:36:47 07/03/19 25 07/04/2024 COMP. METAB OLIC PANEL (14) albumin 3.8 g/dL 3.8-4. 8 Not Available [facility]) [address] [facility] [place], [address], 07/04/2024 03:36:47 07/03/19 25 07/04/2024 COMP. METAB OLIC PANEL (14) globulin, total 3.1 g/dL 1.5-4. 5 Not Available [facility]) [address] [facility] [place], [address], 07/04/2024 03:36:47 07/03/19 25 07/04/2024 COMP. METAB OLIC PANEL (14) bilirubin, total 0.5 mg/dL 0.0-1. 2 Not Available [facility] [address] [facility] [place], [address], 07/04/2024 03:36:47 07/03/19 25 07/04/2024 COMP. METAB OLIC PANEL (14) alkaline phosphatase 130 IU/L 44-121 above high normal Not Available [facility]) [address] [facility] [place], [address], 07/04/2024 03:36:47 07/03/19 25 07/04/2024 COMP. METAB OLIC PANEL (14) AST (SGOT) 25 IU/L 0-40 Not Available [facility]) [address] [facility] [place], [address], 07/04/2024 03:36:47 07/03/19 25 07/04/2024 COMP. METAB OLIC PANEL (14) ALT (SGPT) 13 IU/L 0-32 Not Available [facility] ([facility]) [address] [facility] [place], [address], 07/04/2024 03:36:47 07/03/19 25 07/04/2024 HEMOG LOBIN A1C hemoglobin A1C 5.9 % 4.8-5. 6 above high normal Predi abete s: 5.7 - 6.4 Diabe bc: >6.4 Glyce brianne contr ol for adult s with diabe bc: <7.0 Not Available [facility] ([facility]) [address] [facility], [place], [address], 07/04/2024 03:36:48 07/03/19 25 07/03/2024 CBC, PLATE LET, NO DIFFE RENTI AL WBC 5.3 x10e3 /uL 3.4-10 .8 Not Available [facility] ([facility]) [address] [facility], [place], [address], 07/04/2024 03:36:49 07/03/19 25 07/03/2024 CBC, PLATE LET, NO DIFFE RENTI AL RBC 4.63 x10e6 /uL 3.77-5 .28 Not Available [facility] ([facility]) [address] [place], [address], 07/04/2024 03:36:49 07/03/19 25 07/03/2024 CBC, PLATE LET, NO DIFFE RENTI AL hemoglobin 13.2 g/dL 11.1-1 5.9 Not Available [facility] ([facility]) [address] [place], [address], 07/04/2024 03:36:49 07/03/19 25 07/03/2024 CBC, PLATE LET, NO DIFFE RENTI AL hematocrit 42.8 % 34.0-4 6.6 Not Available [facility] ([facility]) [address] [place], [address], 07/04/2024 03:36:49 07/03/19 25 07/03/2024 CBC, PLATE LET, NO DIFFE RENTI AL MCV 92 fL 79-97 Not Available [facility] ([facility]) [address] [facility], [place], [address], 07/04/2024 03:36:49 07/03/19 25 07/03/2024 CBC, PLATE LET, NO DIFFE RENTI AL MCH 28.5 pg 26.6-3 3.0 Not Available [facility] ([facility]) [address] [facility], [place], [address], 07/04/2024 03:36:49 07/03/19 25 07/03/2024 CBC, PLATE LET, NO DIFFE RENTI AL MCHC 30.8 g/dL 31.5-3 5.7 below low normal Not Available [facility] ([facility]) [address] [facility], [place], [address], 07/04/2024 03:36:49 07/03/19 25 07/03/2024 CBC, PLATE LET, NO DIFFE RENTI AL RDW 13.2 % 11.7-1 5.4 Not Available [facility] ([facility]) [address] [facility], [place], [address], 07/04/2024 03:36:49 07/03/19 25 07/03/2024 CBC, PLATE LET, NO DIFFE RENTI AL platelets 216 x10e3 /uL 150-45 0 Not Available [facility] ([facility]) [address] [place], [address], 07/04/2024 03:36:49 07/03/19 25 07/04/2024 TSH TSH 3.840 uIU/m L 0.450- 4.500 Not Available [facility] ([facility]) [address] [place], [address], 07/04/2024 03:36:52 07/03/19 25 07/04/2024 BASIC METAB OLIC PANEL (8) glucose 91 mg/dL 70-99 Not Available [facility] ([facility]) [address] [place], [address], 07/04/2024 07:15:31 07/03/19 25 07/04/2024 BASIC METAB OLIC PANEL (8) BUN 23 mg/dL 8-27 Not Available [facility] ([facility]) [address] [place], [address], 07/04/2024 07:15:31 07/03/19 25 07/04/2024 BASIC METAB OLIC PANEL (8) creatinine 1.37 mg/dL 0.57-1 .00 above high normal Not Available [facility] ([facility]) [address] [place], [address], 07/04/2024 07:15:31 07/03/19 25 07/04/2024 BASIC METAB OLIC PANEL (8) eGFR 41 mL/mi n/1.7 3 >59 below low normal Not Available [facility] ([facility]) [address] [place], [address], 07/04/2024 07:15:31 07/03/19 25 07/04/2024 BASIC METAB OLIC PANEL (8) BUN/creatini ne ratio 17 12-28 Not Available [facility] ([facility]) [address] [place], [address], 07/04/2024 07:15:31 07/03/19 25 07/04/2024 BASIC METAB OLIC PANEL (8) sodium 142 mmol/ L 134-14 4 Not Available [facility] ([facility]) [address] [place], [address], 07/04/2024 07:15:31 07/03/19 25 07/04/2024 BASIC METAB OLIC PANEL (8) potassium 4.3 mmol/ L 3.5-5. 2 Not Available [facility] ([facility]) [address] [place], [address], 07/04/2024 07:15:31 07/03/19 25 07/04/2024 BASIC METAB OLIC PANEL (8) chloride 99 mmol/ L 96-106 Not Available [facility] ([facility]) [address] [place], [address], 07/04/2024 07:15:31 07/03/19 25 07/04/2024 BASIC METAB OLIC PANEL (8) carbon dioxide, total 31 mmol/ L 20-29 above high normal Not Available [facility] ([facility]) [address] [place], [address], 07/04/2024 07:15:31 07/03/19 25 07/04/2024 BASIC METAB OLIC PANEL (8) calcium 10.3 mg/dL 8.7-10 .3 Not Available [facility] ([facility]) [address] [facility], [place], [address], 07/04/2024 07:15:31 07/03/19 25 07/04/2024 PROTH ROMBI N TIME (PT) INR 1.6 0.9-1. 2 above high normal Refer ence inter kevin is for non-a ntico agula aixa patie nts. Sugge sted INR thera peuti c range for Vitam in K antag onist thera py: Stand harshal Dose (mode rate inten sity thera peuti c range ): 2.0 - 3.0 Highe r inten sity thera peuti c range 2.5 - 3.5 Not Available [facility] ([facility]) [address] [place], [address], 07/04/2024 07:15:32 07/03/19 25 07/04/2024 PROTH ROMBI N TIME (PT) prothrombin time 16.7 sec 9.1-12 .0 above high normal Not Available [facility] ([facility]) [address] [place], [address], 07/04/2024 07:15:32 07/03/19 25 07/04/2024 PROTH ROMBI N TIME (PT) INR 1.6 0.9-1. 2 above high normal Refer ence inter kevin is for non-a ntico agula aixa patie nts. Sugge sted INR thera peuti c range for Vitam in K antag onist thera py: Stand harshal Dose (mode rate inten sity thera peuti c range ): 2.0 - 3.0 Highe r inten sity thera peuti c range 2.5 - 3.5 Not Available [facility] ([facility]) [address] [facility], [place], [address], 07/04/2024 07:15:35 07/03/19 25 07/04/2024 PROTH ROMBI N TIME (PT) prothrombin time 16.7 sec 9.1-12 .0 above high normal Not Available [facility] ([facility]) [address] [place], [address], 07/04/2024 07:15:35 07/03/19 25 07/04/2024 B-TYP E NATRI URETI C PEPTI DE B-type natriuretic peptide 88.1 pg/mL 0.0-10 0.0 Sieme ns ADVIA Cent[facility] XP metho dolog y Not Available [facility] ([facility]) [address] [facility], [place], [address], 07/04/2024 08:27:35 07/10/19 25 07/16/2024 COMPL IANCE DRUG SPENSER SIS, UR summary report (summary) FINAL ===== ===== ===== ===== ===== ===== ===== ===== ===== ===== ===== ===== ===== === TOXAS SURE COMP DRUG SPENSER SIS,U R ===== ===== ===== ===== ===== ===== ===== ===== ===== ===== ===== ===== ===== === Test Resul t Flag Units Drug Prese nt Trama dol 8613 ng/mg creat O-Jabari methy ltram adol 5548 ng/mg creat N-Jabari methy ltram adol 5978 ng/mg creat Sourc e of trama dol is a presc ripti on medic ation . O-jabari methy ltram adol and N-jabari methy ltram adol are expec aixa metab olite s of trama dol. Gabap entin PRESE NT Diphe nhydr amine PRESE NT ===== ===== ===== ===== ===== ===== ===== ===== ===== ===== ===== ===== ===== === Test Resul t Flag Units Ref Range Creat inine 54 mg/dL >=20 ===== ===== ===== ===== ===== ===== ===== ===== ===== ===== ===== ===== ===== === Decla red Medic ation s: Medic ation list was not provi ded. ===== ===== ===== ===== ===== ===== ===== ===== ===== ===== ===== ===== ===== === For clini mickey consu ltati on, pleas e call . ===== ===== ===== ===== ===== ===== ===== ===== ===== ===== ===== ===== ===== === Not Available [facility] ([facility]) [address] [facility], [place], [address], 07/16/2024 12:12:09 07/10/1907/16/2024 COMPL DEEJAY DRUG SPENSER SIS, UR pdf . Not Available [facility] ([facility]) [address] [facility] [place], [address], 07/16/2024 12:12:09 07/22/1907/22/2024 BASIC METAB OLIC PANEL (8) glucose 75 mg/dL 70-99 Not Available [facility] ([facility]) [address] [facility] [place], [address], 07/22/2024 07:15:10 07/22/19 25 07/22/2024 BASIC METAB OLIC PANEL (8) BUN 22 mg/dL 8-27 Not Available [facility] ([facility]) [address] [facility] [place], [address], 07/22/2024 07:15:10 07/22/19 25 07/22/2024 BASIC METAB OLIC PANEL (8) creatinine 1.44 mg/dL 0.57-1 .00 above high normal Not Available [facility] ([facility]) [address] [facility] [place], [address], 07/22/2024 07:15:10 07/22/19 25 07/22/2024 BASIC METAB OLIC PANEL (8) eGFR 39 mL/mi n/1.7 3 >59 below low normal Not Available [facility] ([facility]) [address] [facility] [place], [address], 07/22/2024 07:15:10 07/22/19 25 07/22/2024 BASIC METAB OLIC PANEL (8) BUN/creatini ne ratio 15 12-28 Not Available [facility] ([facility]) [address] [facility] [place], [address], 07/22/2024 07:15:10 07/22/19 25 07/22/2024 BASIC METAB OLIC PANEL (8) sodium 142 mmol/ L 134-14 4 Not Available [facility] ([facility]) [address] [facility] [place], [address], 07/22/2024 07:15:10 07/22/19 25 07/22/2024 BASIC METAB OLIC PANEL (8) potassium 3.9 mmol/ L 3.5-5. 2 Not Available [facility] ([facility]) [address] [facility] [place], [address], 07/22/2024 07:15:10 07/22/19 25 07/22/2024 BASIC METAB OLIC PANEL (8) chloride 99 mmol/ L 96-106 Not Available [facility] ([facility]) [address] [facility] [place], [address], 07/22/2024 07:15:10 07/22/19 25 07/22/2024 BASIC METAB OLIC PANEL (8) carbon dioxide, total 29 mmol/ L 20-29 Not Available [facility] ([facility]) [address] [place], [address], 07/22/2024 07:15:10 07/22/19 25 07/22/2024 BASIC METAB OLIC PANEL (8) calcium 10.1 mg/dL 8.7-10 .3 Not Available [facility] ([facility]) [address] [facility] [place], [address], 07/22/2024 07:15:10 07/22/1907/22/2024 B-TYP E NATRI URETI C PEPTI DE B-type natriuretic peptide 69.7 pg/mL 0.0-10 0.0 Sieme ns ADVIA [facility] XP metho dolog y Not Available [facility] ([facility]) [address] [place], [address], 07/22/2024 10:13:07 09/12/19 25 09/21/2024 COMPL IANCE DRUG SPENSER SIS, UR summary report (summary) FINAL ===== ===== ===== ===== ===== ===== ===== ===== ===== ===== ===== ===== ===== === TOXAS SURE COMP DRUG SPENSER SIS,U R ===== ===== ===== ===== ===== ===== ===== ===== ===== ===== ===== ===== ===== === Test Resul t Flag Units Drug Prese nt Trama dol 482 ng/mg creat O-Jabari methy ltram adol 1516 ng/mg creat N-Jabari methy ltram adol 945 ng/mg creat Sourc e of trama dol is a presc ripti on medic ation . O-jabari methy ltram adol and N-jabari methy ltram adol are expec aixa metab olite s of trama dol. Gabap entin PRESE NT Aceta minop hen PRESE NT Diphe nhydr amine PRESE NT ===== ===== ===== ===== ===== ===== ===== ===== ===== ===== ===== ===== ===== === Test Resul t Flag Units Ref Range Creat inine 49 mg/dL >=20 ===== ===== ===== ===== ===== ===== ===== ===== ===== ===== ===== ===== ===== === Decla red Medic ation s: Medic ation list was not provi ded. ===== ===== ===== ===== ===== ===== ===== ===== ===== ===== ===== ===== ===== === For clini mickey consu ltati on, pleas e call . ===== ===== ===== ===== ===== ===== ===== ===== ===== ===== ===== ===== ===== === Not Available [facility] ([facility]) [address] [facility], [place], [address], 09/21/2024 07:17:33 09/12/1909/21/2024 COMPL IANCE DRUG SPENSER SIS, UR pdf . Not Available [facility] ([facility]) [address] [facility], [place], [address], 09/21/2024 07:17:33 Result Notes None recorded. Problems Name Problem SNOMED Code Status Onset Date Resolution Date Notes Provider Name and Address Organization Details Recorded Time Chronic renal failure 71728349 Active 2019 referred to nephro Dorian Barbour MD Attn: Cynthia isabelle,[address] [facility], [place], [address], [place] - [facility] 2 11:58:14 Lichen sclerosu s of vulva 821020687 Active 2022 NILS DON MD Attn: Cynthia isabelle,[address] [facility], [place], [address], [place] [facility] 3 15:03:48 Elevated blood-pr essure reading without diagnosi s of hyperten william 767450302 Active Dorian Barbour MD Attn: Cynthia isabelle,[address] [facility], [place], [address], [place] - [facility] 2 11:58:14 Pneumoni a 020759315 Completed 04/01/2015 Dorian Barbour MD Attn: Cynthia isabelle,[address] [facility], [place], [address], [place] [facility] 6 09:34:50 Shoulder joint pain 307353474 Active Dorian Barbour MD Attn: Ashleyfela g,[address] [facility], [place], [address], [place] [facility] 2 11:58:14 Hypothyr oidism 17140323 Active Dorian Barbour MD Attn: Accountfela g,[address] [facility], [place], [address], [place] [facility] 2 11:58:14 Congesti ve heart failure 64029408 Active Dorian Barbour MD Attn: Ashleyfela g,[address] [facility], [place], [address], [place] [facility] 2 11:58:14 Paroxysm al atrial flutter 456299387 Active seeing cardio Dorian Barbour MD Attn: Accountfela g,[address] [facility], [place], [address], [place] [facility] 2 11:58:14 Allergic rhinitis 69897258 Active Dorian Barbour MD Attn: Ashleyfela g,[address] [facility], [place], [address], [place] [facility] 6 09:34:50 Hypoxia 397381824 Active pt sees pulmo Dorian Barbour MD Attn: Accountfela g,[address] [facility], [place], [address], [place] [facility] 2 11:58:14 Vertigo 672014605 Completed 06/15/2016 Dorian Barbour MD Attn: Cynthia isabelle,[address] [facility], [place], [address], [place] [facility] 7 09:51:06 Obstruct jimmy sleep apnea syndrome 42193016 Active 2016 Dr.Ahmad Dorian Barbour MD Attn: Cynthia g,[address] [facility], [place], [address], [place] [facility] 2 11:58:14 Mixed anxiety and depressi ve disorder 395638579 Active 2016 not on med Dorian Barbour MD Attn: Cynthia g,[address], [place], [address], [facility] - COUNTS INCLUDE 234 BEDS AT THE [facility] 11:58:14 Problem Notes None recorded. Procedures Surgical History Date Name Laterality Status Provider Name and Address Organization Details Recorded Time 6 Most Recent Mammogram completed Dorian Barbour MD Attn: Accounting,[address], [place], [address], [facility] - [facility] 12/02/2015 13:13:12 0 Heart Surgery completed Libra Garza RN [facility] 07/01/2024 11:05:51 Imaging Results None recorded. Procedure Notes None recorded. Medical Equipment None Reported. Allergies No known drug allergies Medications Name Sig Start Date Stop Date Status Note LastModified by Organization Details LastModified Time amoxicilli n 500 mg capsule TAKE 4 CAPSULES BY MOUTH 1 HOUR PRIOR TO DENTAL APPOINTM ENT active Not Available Not Available No t Available furosemide 40 mg tablet Take 1 tablet every day by oral route. 2024 active Not Available Not Available Not Avai lable doxycyclin e hyclate 100 mg capsule 08/23 completed Not Available Not Available Not Available atorvastat in 20 mg tablet TAKE 1 TABLET BY MOUTH EVERY DAY active Not Available Not Available No t Available albuterol sulfate 2.5 mg/3 mL (0.083 %) solution for nebulizati on 3 ML BY NEBULIZA TION ROUTE EVERY 4 HOURS NEEDED FOR WHEEZING , SHORTNES S OF BREATH OR COUGH. active Not Available Not Available No t Available azithromyc in 250 mg tablet TAKE 2 TABLETS (500 MG) BY ORAL ROUTE ONCE DAILY FOR 1 DAY THEN 1 TABLET (250 MG) BY ORAL ROUTE ONCE DAILY FOR 4 DAYS 07/06 completed Not Available Not Available Not Available benzonatat e 200 mg capsule TAKE 1 CAPSULE BY MOUTH THREE TIMES DAILY NEEDED active Not Available Not Available No t Available metoprolol succinate ER 50 mg tablet,ext ended release 24 hr Take 1 tablet every day by oral route for 30 days. 04/26 completed Not Available Not Available Not Available prednisone 5 mg tablet 02/20 completed Not Available Not Available Not Available metronidaz ole 250 mg tablet 08/23 completed Not Available Not Available Not Available warfarin 2.5 mg tablet TAKE 1 TABLET BY MOUTH EVERY DAY 07/01 completed Not Available Not Available Not Available penicillin V potassium 500 mg tablet TAKE 1 TABLET BY MOUTH EVERY 8 HOURS FOR 7 DAYS active Not Available Not Available No t Available potassium chloride ER 10 mEq tablet,ext ended release TAKE 1 TABLET EVERY DAY BY ORAL ROUTE, FOR WITH DIURETIC . active Not Available Not Available No t Available tramadol 50 mg tablet TAKE 1 TABLET BY MOUTH TWICE A DAY NEEDED active Not Available Not Available No t Available spironolac tone 25 mg tablet TAKE 1 TABLET BY MOUTH EVERY DAY 11/03 completed Not Available Not Available Not Available warfarin 3 mg tablet TAKE 1 TABLET BY MOUTH EVERY DAY 07/01 completed Not Available Not Available Not Available levothyrox ine 100 mcg tablet TAKE 1 TABLET BY MOUTH EVERY DAY 06/05 completed Not Available Not Available Not Available amoxicilli n 875 mg tablet TAKE 1 TABLET EVERY 12 HOURS DAILY active Not Available Not Available No t Available furosemide 80 mg tablet TAKE 1 TABLET BY MOUTH ONCE DAILY active Not Available Not Available No t Available meclizine 25 mg tablet TAKE ONE TABLET BY MOUTH TWICE DAILY NEEDED active Not Available Not Available No t Available levothyrox ine 50 mcg tablet Take 1 tablet every day by oral route for 30 days. active Not Available Not Available No t Available levothyrox ine 125 mcg tablet TAKE 1 TABLET BY MOUTH EVERY DAY 11/04 completed Not Available Not Available Not Available warfarin 2 mg tablet TAKE 1 TABLET BY MOUTH EVERY DAY 07/01 completed Not Available Not Available Not Available warfarin 5 mg tablet Take 1 tablet every day by oral route as directed . 04/12 completed Not Available Not Available Not Available levothyrox ine 150 mcg tablet TAKE 1 TABLET BY MOUTH ONCE DAILY 02/14 completed Not Available Not Available Not Available gabapentin 300 mg capsule TAKE 1 CAPSULE BY MOUTH ONCE DAILY AT BEDTIME active Not Available Not Available No t Available omeprazole 20 mg capsule,de layed release Take 1 capsule every day by oral route. 02/14 completed prn Not Available Not Available Not Available clobetasol 0.05 % topical ointment APPLY A THIN LAYER TO THE AFFECTED AREA(S) BY TOPICAL ROUTE DAILY FOR TWO WEEKS DURING FLARE UPS. THEN USE THREE TIMES WEEKLY, Sunday AND SUNDAY, FOR DOROTHEA NCJordy TREATJENNIFER T. active Not Available Not Available No t Available warfarin 1 mg tablet TAKE 1 TABLET BY MOUTH EVERY DAY DIRECTED 04/26 completed Not Available Not Available Not Available betamethas one dipropiona te 0.05 % topical ointment APPLY A THIN LAYER TO THE AFFECTED AREA ONCE DAILY 05/24 completed Not Available Not Available Not Available fluticason e propionate 50 mcg/actuat ion nasal spray,susp ension Take 2 sprays every day by nasal route. active Not Available Not Available No t Available dicyclomin e 10 mg capsule 08/23 completed Not Available Not Available Not Available levothyrox ine 112 mcg tablet TAKE 1 TABLET BY MOUTH EVERY DAY active Not Available Not Available No t Available amoxicilli n 500 mg-potassi um clavulanat e 125 mg tablet 02/20 completed Not Available Not Available Not Available escitalopr am 10 mg tablet Take 1 tablet every day by oral route. 10/25 completed pt not taking Not Available Not Available Not Available Pradaxa 150 mg capsule TAKE ONE CAPSULE BY MOUTH TWICE DAILY 06/15 completed Not Available Not Available Not Available Xarelto 15 mg tablet TAKE 1 TABLET BY MOUTH EVERY DAY active Not Available Not Available No t Available Eliquis 5 mg tablet Take 1 tablet twice a day by oral route. 11/25 completed Not Available Not Available Not Available Breo Ellipta 100 mcg-25 mcg/dose powder for inhalation 04/12 completed Not Available Not Available Not Available Trelegy Ellipta 100 mcg-62.5 mcg-25 mcg powder for inhalation INHALE 1 PUFF EVERY DAY active Not Available Not Available No t Available finerenone 10 mg tablet Take 1 tablet every day by oral route. 07/01 completed Not Available Not Available Not Available Paxlovid 150 mg-100 mg tablets in a dose pack (Moderate Renal Dose) TAKE 2 TABLETS BY MOUTH TWICE A DAY FOR 5 DAYS 05/19 completed Not Available Not Available Not Available Vitals Date Recorded Body height Body mass index (BMI) Body weight Heart rate Respiratory rate Body temperature Oxygen saturation Oxygen saturation in Arterial blood by Pulse oximetry Inhaled oxygen flow rate Systolic blood pressure Diastolic blood pressure Provider Name and Address Organization Details Last Updated DateTime 5 157.48 cm 39.7 kg/m2 46336.9 g 87 /min 14 /min 97.2 [degF] 88 % 88 % 3 L/min 127 mm[Hg] 72 mm[Hg] Shelbie Shah MA [facility] 5 11:33:33 Date Recorded Body height Body mass index (BMI) Body weight Oxygen saturation Oxygen saturation in Arterial blood by Pulse oximetry Inhaled oxygen flow rate Heart rate Respiratory rate Body temperature Systolic blood pressure Diastolic blood pressure Provider Name and Address Organization Details Last Updated DateTime 5 157.48 cm 40.3 kg/m2 56475.6 8 g 97 % 97 % 3 L/min 77 /min 16 /min 97.3 [degF] 122 mm[Hg] 80 mm[Hg] Shelbie Shah MA [facility] 5 12:24:23 Date Recorded Body height Body mass index (BMI) Body weight Heart rate Oxygen saturation Oxygen saturation in Arterial blood by Pulse oximetry Systolic blood pressure Diastolic blood pressure Provider Name and Address Organization Details Last Updated DateTime 5 157.48 cm 39.9 kg/m2 22227.1 4 g 77 /min 91 % 91 % 120 mm[Hg] 50 mm[Hg] Libra Garza RN [facility] 5 11:07:58 Date Recorded Body height Body mass index (BMI) Body weight Heart rate Oxygen saturation Oxygen saturation in Arterial blood by Pulse oximetry Inhaled oxygen flow rate Systolic blood pressure Diastolic blood pressure Provider Name and Address Organization Details Last Updated DateTime 5 157.48 cm 40.2 kg/m2 97851.3 2 g 65 /min 91 % 91 % 3 L/min 102 mm[Hg] 60 mm[Hg] Libra Garza RN [place] [facility] 5 09:45:03 Date Recorded Body height Body mass index (BMI) Body weight Oxygen saturation Oxygen saturation in Arterial blood by Pulse oximetry Inhaled oxygen flow rate Heart rate Respiratory rate Body temperature Systolic blood pressure Diastolic blood pressure Provider Name and Address Organization Details Last Updated DateTime 5 157.48 cm 41.1 kg/m2 761110. 92 g 90 % 90 % 3 L/min 82 /min 16 /min 97.3 [degF] 117 mm[Hg] 75 mm[Hg] Shelbie DOMINIC Shah [place] [facility] 10:28:14 Social History Question Answer Notes LastModified by Organizat ion Details LastModified Time Tobacco Smoking Status Never Smoker Mariza FletcherDOMINIC null, [place] - [place] 03/17/2015 09:18:26 Do You Have An Advance Directive? No Information not available 10/19/2020 Are You Blind Or Do You Have Difficulty Seeing? No Glasses Information not available 11/03/2021 What Is Your Level Of Caffeine Consumption? Moderate Information not available 02/15/2024 How Much Tobacco Do You Chew? None Information not available 06/15/2016 In The 14 Days Before Symptom Onset, Have You Had Close Contact With A Laboratory-confir med COVID-19 While That Case Was Ill? No Information not available 08/21/2022 In The 14 Days Before Symptom Onset, Have You Had Close Contact With A Person Who Is Under Investigation For COVID-19 While That Person Was Ill? No Information not available 08/21/2022 Have You Been To An Area Known To Be High Risk For COVID-19? No Information not available 08/29/2019 Are You Deaf Or Do You Have Serious Difficulty Hearing? No Information not available 09/11/2024 What Type Of Diet Are You Following? REGULAR Information not available 02/15/2024 Which Illicit Or Recreational Drugs Have You Used? Denies Information not available 06/15/2016 Education 2 Year College Information not available 08/29/2019 What Is The Highest Grade Or Level Of School You Have Completed Or The Highest Degree You Have Received? [id number] Information not available 10/19/2020 Are There Any Guns Present In Your Home? Yes Information not available 08/29/2019 Hard Of Hearing Or Deaf In One Or Both Ears? No Information not available 11/07/2019 Legally Blind In One Or Both Eyes? No Information no t available 11/07/2019 Marital Status Informatio n not available 06/15/2016 What Was The Date Of Your Most Recent Tobacco Screening? 09/11/2024 Information not available 09/11/2024 Performs Monthly Self-breast Exam? No Information no t available 06/14/2020 What Is Your Relationship Status? Information not available 10/19/2020 Do You Use Your Seat Belt Or Car Seat Routinely? Yes Information not available 10/19/2020 Seat Belts Used Routinely Yes Information not available 08/29/2019 Smoke Alarm In Home No Information not available 08/29/2019 Do You Have Smoke And Carbon Monoxide Detectors In Your Home? Yes Information not available 10/19/2020 Are You Passively Exposed To Smoke? No [email or web address] Information no t available 05/24/2023 How Much Tobacco Do You Smoke? No Information not available 08/29/2019 General Stress Level Low Information not available 06/14/2020 Do You Use Sunscreen Routinely? No Information not available 08/29/2019 Has Tobacco Cessation Counseling Been Provided? No Information not available 05/24/2022 Sex: Female Functional Status Question Answer Note LastModified by Organizat ion Details LastModified Time Do you use any illicit or recreational drugs? No Information not available 10/19/2020 Do you or have you ever used any other forms of tobacco or nicotine? No Information not available 10/19/2020 What is your level of alcohol consumption? Occasional [email or web address] Information not available 05/25/2023 Do you or have you ever used smokeless tobacco? Never used smokeless tobacco Information not available 08/29/2019 Are you currently employed? No Information not available 05/29/2024 Are you able to care for yourself? 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 Never used electronic cigarettes Information not available 08/29/2019 What is your exercise level? None Information not available 06/14/2020 Mental Status Question Answer Note LastModified by Organization D etails LastModified Time Do you feel stressed (tense, restless, nervous, or anxious, or unable to sleep at night)? [id number] Information not available 10/19/2020 Family History Relationship Description Onset Age of this Age Resolved Age Notes LastModified by Organization Details LastModified Time Mother Family history of malignant neoplasm [email or web address] Not available 2015 09:08:28 Mother Malignant neoplasm of lung [email or web address] Not available 11/06 08:30:40 Brother Malignant tumor of pharynx [email or web address] Not available 11/06 08:30:50 Sister Malignant tumor of breast 38 crexfordma Not available 11/06 08:31:31 Sister Heart disease [email or web address] Not available 11/06 08:32:13 Maternal Grandmother Heart disease [email or web address] Not available 11/06 08:32:13 Maternal Grandmother Diabetes mellitus crexfordma Not available 11/06 08:32:27 Medical History Condition Response Other Y Atrial Fibrillation Y Thyroid Problems Y COPD Y Gynecological History Statement/Question Response If Post Menopausal, Age at Menopause 53 Date of Last Pap Smear Current Control Method Menopause Most Recent Mammogram 11/22/2015 LMP Approximate Obstetrics History GPAL:G 0 P 0 0 0 0 Immunizations Vaccine Type Date Status Note Provider Nam e and Address Organization Details Recorded Time pneumococcal polysaccharide PPV23 6 completed [facility] 02:30:14 COVID-19, mRNA, LNP-S, PF, 100 mcg/0.5mL dose or 50 mcg/0.25mL dose 1 completed Pushpa Jimenez MA null, [place] - [facility] 06/21/2020 16:20:50 COVID-19, mRNA, LNP-S, PF, 100 mcg/0.5mL dose or 50 mcg/0.25mL dose 1 completed Johanna Rich null, [place] - [facility] 07/19/2020 17:31:08 Past Encounters Encounter ID Performer Location Encounter Start Date Encounter Closed Date Diagnosis/Indication Diagnosis SNOMED-CT Code Diagnosis ICD10 Code Diagnosis Note [id number] Dorian Barbour MD [facility] (Adult Med) [address] [place] [address] 03/17/2015 08:44:11 03/17/2015 14:42:14 Elevated blood-pressure reading without diagnosis of hypertension 714557431 R03.0 Reassess with next apt Pneumonia 421998086 J17 with hypoxia and pleuritic chest pain with h/o heart surgery in the past ( 1989) pt agreed to go to ER for evaluation Shoulder joint pain 2679 29310 M25.512 will evaluate when pt comes back for f/u Hypothyroidism 39378253 E03.8 continue same for now [id number] MD Yvette Gomezhalto (Adult Med) [address] [place] [address] 04/01/2015 08:45:15 04/01/2015 09:35:52 Congestive heart failure 06645827 I50.32 with hypoxia ( EF-55-60%) continue 2 L oxygen and meds pt to f/u with cardio Paroxysmal atrial flutter 716414344 I48.3 pt is in SR now continue Eliquis Hypothyroidism 11832965 E03.8 pt to continue Levothyrox in 150mcg dialy for now ( do not take extra 50 mcg ) will check TSH in 2 month Shoulder joint pain 2679 85072 M25.512 check xray Allergic rhinitis 241876 04 J30.89 pt to use humidified oxygen Add Flonase [id number] MD Azam Gomez (Adult Med) [address] [place] [address] 2015 08:36:03 05/03/2015 10:47:14 Congestive heart failure 16418309 I50.32 with hypoxia ( EF-55-60%) continue 2 L oxygen and meds pt to f/u with cardio- had normal cardiac cath and pt was told to see lung specialist Hypoxia 971958687 J96.[address] recommende d pt to see pulmo Had cardiac cath recently Paroxysmal atrial flutter 509238339 I48.3 pt is in SR now Eliquis is not covered by her insurance Will start pt on coumadin 5 mg check pt/inr today and on Sunday Shoulder joint pain 2679 81355 M25.512 xray -normal refer to ortho [id number] [facility] [address] [place] [address] 06/18/2015 08:57:03 06/18/2015 14:30:53 Congestive heart failure 52747080 I50.32 with hypoxia ( EF-55-60%) continue 2 L oxygen and meds pt to f/u with cardio- had normal cardiac cath Increase Furosemide 60-80 mg daily Hypothyroidism 18510215 E03.8 pt to continue Levothyrox in 150mcg dialy for now ( do not take extra 50 mcg ) check TSH Paroxysmal atrial flutter 923270092 I48.3 pt is in SR now Eliquis is not covered by her insurance continue coumadin as directed Shoulder joint pain 2679 63390 M25.512 xray -normal pt did not see ortho yet due to insurance issue Hypoxia 544350276 J96.[address] recommende d pt to see pulmo who ordered sleep study Had normal cardiac cath recently pt to increase oxygen 3 l [id number] [facility] [address] [place] [address] 06/28/2015 11:12:59 06/28/2015 13:50:[address] head -normal check MRI fall precaution s discussed with pt Shoulder joint pain 2679 31773 M25.512 xray -normal pt did not see ortho yet due to insurance issue pt wants to do MRI [id number] [facility] [address] [place] [address] 09/17/2015 09:10:47 09/17/2015 10:39:03 Hypothyroidism 16716588 E03.8 pt to continue Levothyrox in 150mcg daily check TSH Congestive heart failure 13682311 I50.32 with hypoxia ( EF-55-60%) continue 2 L oxygen and meds pt to f/u with cardio- had normal cardiac cath Has f/u apt in few wks continue Furosemide 60-80 mg daily Paroxysmal atrial flutter 548994446 I48.3 pt is in SR now continue coumadin as directed Shoulder joint pain 2679 08776 M25.512 xray -normal MRI showed mild tendinosis pt did not see ortho yet due to insurance issue Screening for malignant neoplasm of colon 954691883 Z12.11 pt declined colonoscop y Screening mammography 24 287352 Z12.31 Administra tion of pneumococcal vaccine 27771001 Z23 [id number] [facility] [address] [place] [address] 12/17/2015 08:54:01 12/17/2015 10:07:48 Hypothyroidism 34791612 E03.8 pt to continue Levothyrox in 150mcg daily check TSH Congestive heart failure 84634800 I50.32 with hypoxia ( EF-55-60%) continue 2 L oxygen and meds pt to f/u with cardio- had normal cardiac cath continue Furosemide 60-80 mg daily Paroxysmal atrial flutter 690357517 I48.92 continue Coumadin Shoulder joint pain 2679 91638 M25.512 with PT xray -normal MRI showed mild tendinosis pt did not see ortho due to insurance issue [id number] [facility] [address] [place] [address] 06/15/2016 09:25:48 06/15/2016 12:41:26 Hypothyroidism 76987849 E03.8 pt to continue Levothyrox in 150mcg dailycheck TSH Congestive heart failure 15483178 I50.32 with hypoxia ( EF-55-60%) continue 2 L oxygen and medspt to f/u with cardio- had normal cardiac cath continue Furosemide 60-80 mg daily Paroxysmal atrial flutter 278639321 I48.92 continue coumadin Elevated blood-pressure reading without diagnosis of hypertension 324482596 R03.0 fair controlcon tinue metoprolol pt follow low salt diet and loose wt Shoulder joint pain 2679 53584 M25.512 iproving with PT xray -normal MRI showed mild tendinosis pt did not see ortho due to insurance issue Hypoxia 046899960 R09.02 pt sees pulmo and is on oxygen [id number] [facility] [address] [place] [address] 10/27/2016 11:16:55 10/30/2016 16:14:56 Hypothyroidism 97592831 E03.8 pt to continue Levothyrox in 150mcg dailycheck TSH Congestive heart failure 25580962 I50.32 with hypoxia ( EF-55-60%) continue 2 L oxygen and medspt to f/u with cardio- had normal cardiac cathcontin ue Furosemide 60-80 mg daily Screening for malignant neoplasm of colon 233256251 Z12.11 pt declined colonoscop y Shoulder joint pain 2679 34040 M25.512 improving with PT xray -normal MRI showed mild tendinosis pt did not see ortho due to insurance issue [id number] MD Yvette Gomezhalto (Adult Med) [address] [place] [address] 03/02/2017 08:18:05 03/06/2017 17:30:25 Hypothyroidism 36292100 E03.8 pt to continue Levothyrox in 150mcg dailycheck TSH Congestive heart failure 32454268 I50.9 stablecont inue furosemide Paroxysmal atrial flutter 954970545 I48.92 continue coumadin as directed Acute bronchitis 3737111 2 J20.9 pt to return to clinic or go to ER if it gets worse [id number] [facility] [address] [place] [address] 07/06/2017 09:06:09 07/10/2017 15:27:51 Paroxysmal atrial flutter 611136642 I48.92 continue coumadin as directed Hypothyroidism 79405324 E03.8 pt to continue Levothyrox in 150mcg daily Pain in lower limb 75966 006 M79.604 M79.605 pt tried gabapentin which helped per pt ( pt is counselled against taking meds from others ) Congestive heart failure 08934984 I50.9 with leg edema/ elevated bpcontinue furosemide bidAdd Aldactone Elevated blood-pressure reading without diagnosis of hypertension 703939052 R03.0 fair controlcon tinue metoprolol Aldactone addedpt follow low salt diet and loose wt [id number] [facility] [address] [place] [address] 10/05/2017 08:58:53 10/05/2017 17:42:55 Hypothyroidism 03229904 E03.9 continue levothyrox in 150 mcg Paroxysmal atrial flutter 671279962 I48.92 continue coumadin as directed Congestive heart failure 79322365 I50.9 with leg edema/ elevated bpcontinue furosemide bid / Aldactone [id number] 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 ) Mixed anxi ety and depressive disorder 423193700 F41.8 declined med /counselli ng [id number] MD Yvette Gomezhalto (Adult Med) [address] [place] [address] 04/26/2018 08:44:18 2018 15:58:03 Abdominal pain 81831612 R10.9 RUQ and epigastric pain( h/o gallstones in the past , 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 )us-limite d qualityCT scan showed stable mild dilatation of common bileduct and lobulated kidney with tiny cyst Upper resp iratory infection 12817545 J06.9 supportive care Paroxysmal atrial flutter 521039729 I48.92 continue coumadin as directed [id number] MD Yvette Gomezhalto (Adult Med) [address] [place] [address] 10/25/2018 08:19:01 10/28/2018 14:20:14 Upper respiratory infection 91677432 J06.9 supportive carept to return to clinic if problem persists Hypothyroidism 55005551 E03.9 stablecont inue levothyrox in 150 mcg Mixed anxi ety and depressive disorder 249895083 F41.8 pt stopped lexapro and does not want to take med .declined counsellin g Congestive heart failure 54187408 I50.9 stablecont inue furosemide bid / Aldactone Paroxysmal atrial flutter 587950053 I48.92 continue coumadin as directed Screening for malignant neoplasm of colon 504862910 Z12.11 pt declined colonoscop y [id number] [facility] [address] [place] [address] 02/28/2019 08:28:35 03/03/2019 12:47:42 Hypothyroidism 70805496 E03.9 stablecont inue levothyrox in 125 mcg Congestive heart failure 29695006 I50.9 stablept to lower to furosemide once daily -ok to do bid whenever needed / Aldactone . monitor kidney function Paroxysmal atrial flutter 413031349 I48.92 continue coumadin as directed Mixed anxi ety and depressive disorder 252651936 F41.8 pt stopped lexapro and does not want to take med .declined bakari walton [id number] MD Yvette Gomezhalto (Adult Med) [address] [place] [address] 08/29/2019 08:13:42 09/02/2019 13:55:55 Paroxysmal atrial flutter 056472275 I48.92 continue coumadin as directed-p t to take 3 mg daily except 2 mg on mon and Sundaylab in 2-3 wks time Hypothyroidism 55839682 E03.9 stablecont inue levothyrox in 125 mcg Congestive heart failure 16488986 I50.9 stablept to continue furosemide once daily -ok to do bid whenever needed / Aldactone . monitor kidney function Renewal of prescription 268060645 Z76.0 Mixed anxi ety and depressive disorder 844985752 F41.8 pt stopped lexapro and does not want to take med .declined counsellin g [id number] MD Azam Gomez (Adult Med) [address] [place] [address] 11/07/2019 08:13:23 11/10/2019 06:22:18 Mixed anxiety and depressive disorder 892356820 F41.8 declined med/counse lling Hypothyroidism 43611763 E03.9 stablecont inue levothyrox ine 125 mcg Congestive heart failure 80097142 I50.9 stablept to continue furosemide once daily -ok to do bid whenever needed / Aldactone . monitor kidney function Paroxysmal atrial flutter 335614864 I48.92 continue coumadin as directed-w ill try to get approval for eliquis since her PT/INR is fluctuatin g a lot -discussed about greens in food /vitamins interactio n Obstructiv e sleep apnea syndrome 88437694 G47.33 compliant with cpap Hypoxia 573576997 R09.02 pt sees pulmo and is on oxygen Renal insufficiency 7231 09748 N28.9 avoid nsaid /monitor kidney function [id number] MD Azam Gomez (Adult Med) [address] [place] [address] 02/11/2020 08:09:08 02/13/2020 13:00:02 Congestive heart failure 67346251 I50.9 stablept to continue furosemide once daily -ok to do bid whenever needed / Aldactone . monitor kidney function Paroxysmal atrial flutter 827901790 I48.92 continue coumadin as directed-T ried to get approval for Direct oral anticoagul ant for pt and her insurance denied it / her PT/INR is fluctuatin g a lot -discussed about greens in food /vitamins interactio n Hypothyroidism 98902067 E03.9 stablecont inue levothyrox ine Renal insufficiency 7231 40863 N28.9 avoid nsaid /monitor kidney function [id number] MD Yvette Gomezhalto (Adult Med) [address] [place] [address] 06/14/2020 08:14:11 06/15/2020 12:13:26 Hypothyroidism 09275424 E03.9 stablecont inue levothyrox ine Congestive heart failure 15984001 I50.9 stablept to continue furosemide once daily -ok to do bid whenever needed / Aldactone . monitor kidney function Paroxysmal atrial flutter 674604275 I48.92 continue coumadin as directed-T ried to get approval for Direct oral anticoagul ant for pt and her insurance denied it / her PT/INR is fluctuatin g a lot -discussed about greens in food /vitamins interactio n Chronic renal failure 90 943444 N18.9 monitor renal function- referred to nephro -declined to see one Renewal of prescription 600499428 Z76.0 [id number] MD Jose Gallo 14 IM [address] [facility] [address] [place] [address] 06/21/2020 11:47:38 06/22/2020 06:48:23 Administration of SARS-CoV-2 antigen vaccine 847158420 Z23 [id number] MD Jose Gallo 14 IM [address] [facility] [address] [place] [address] 07/19/2020 11:47:00 07/20/2020 10:40:27 Administration of SARS-CoV-2 antigen vaccine 920190751 Z23 [id number] [facility] [address] [place] [address] 10/19/2020 08:38:39 10/20/2020 12:14:10 Hypothyroidism 13237416 E03.9 stablecont inue levothyrox ine Congestive heart failure 74298454 I50.9 stablept to continue furosemide once daily -ok to do bid whenever needed / Aldactone . monitor kidney function Paroxysmal atrial flutter 140463968 I48.92 continue coumadin as directed-T ried to get approval for Direct oral anticoagul ant for pt and her insurance denied it / her PT/INR is fluctuatin g a lot -discussed about greens in food /vitamins interactio n [id number] MD [facility] (Adult Med) [address] [place] [address] 04/26/2021 11:44:06 04/27/2021 09:13:19 Hypothyroidism 58674676 E03.9 stablecont inue levothyrox ine Congestive heart failure 53572179 I50.9 stablept to continue furosemide once daily -pt to try 1/2 tab to 1 tab prn / Aldactone .monitor kidney function- pt to see cardio Paroxysmal atrial flutter 096641795 I48.92 continue coumadin as directed-T ried to get approval for Direct oral anticoagul ant for pt and her insurance denied it / her PT/INR is fluctuatin g a lot -discussed about greens in food /vitamins interactio n Chronic renal failure 90 189582 N18.9 monitor renal function- referred to nephro -declined to see one Screening mammography 24 735421 Z12.31 pt declined Screening for malignant neoplasm of colon 489541864 Z12.11 pt declined colonoscop y Obesity 258983161 E66.9 [id number] [facility] [address] [place] [address] 11/03/2021 11:24:16 11/04/2021 12:55:07 Hypothyroidism 86282808 E03.9 stablecont inue levothyrox ine Congestive heart failure 45376858 I50.9 stablept to continue furosemide once daily -pt to try 1/2 tab to 1 tab prn / Aldactone .monitor kidney function- pt to see cardio Paroxysmal atrial flutter 150873977 I48.92 continue coumadin as directed-T ried to get approval for Direct oral anticoagul ant for pt and her insurance denied it [id number] [facility] [address] [place] [address] 01/20/2022 12:29:30 01/24/2022 12:05:41 COVID-19 497397880 U07.1 -pt is willing to take paxlovid - will do renal dose due to her borderline kidney function- keep good hydration / go to ER if sob or chest pain or breathing issue [id number] [facility] [address] [place] [address] 05/19/2022 08:34:37 05/23/2022 10:28:36 Influenza vaccination declined 510976714 Z28.21 Congestive heart failure 96441551 I50.9 stablept to continue furosemide once daily -pt to try 1/2 tab to 1 tab prn / Aldactone .monitor kidney function- pt to see cardio Hypothyroidism 71528270 E03.9 stablecont inue levothyrox ine Hypoxia 170351466 R09.02 pt sees pulmo and is on oxygen Paroxysmal atrial flutter 923476528 I48.92 continue coumadin as directed-T ried to get approval for Direct oral anticoagul ant for pt and her insurance denied it Obesity 014939212 E66.9 Screening for malignant neoplasm of colon 327485437 Z12.11 pt declined colonoscop y Lichen scl erosus of vulva 276126255 N90.4 pt is on clobetasol topical -pt to see Stock Clerk for evaluation [id number] MD Azam WAGNER (STEREOTYPE FINISHER) [address] [place] [address] 05/24/2022 13:30:37 05/25/2022 11:21:09 Lichen sclerosus of vulva 260377860 N90.4 - Discontinu e betamethas one ointment and start clobetasol - Advised patient to apply ointment to vulva and perianal area every day even when she doesn't feel like there is a flare- Will follow up in 3 months and consider a punch biopsy at that time- Discussed risk for vulvar cancer with uncontroll ed lichen sclerosus with patient and recommende d referral to vulvar specialist ; however, patient declined at this visit and said she would prefer to continue with more conservati ve management [id number] MD Azam WAGNER (STEREOTYPE FINISHER) [address] [place] [address] 08/21/2022 13:31:10 08/22/2022 12:56:16 Lichen sclerosus of vulva 985202391 N90.4 - 05/24/22: Discontinu ed betamethas one ointment and started clobetasol . Advised patient to use ointment daily even if not feeling a flare. Discussed risk for vulvar cancer with uncontroll ed lichen sclerosus with patient and recommende d referral to vulvar specialist ; however, patient declined at visit and said she would prefer to continue with more conservati ve management .- 08/21/22: Start maintenanc e treatment with clobetasol M/W/F. Return to clinic in 3 months for follow up. Body mass index 30+ - obesity 737533698 Z68.37 - Discussed healthy behaviors, including eating a balanced diet and incorporat ing regular physical activity into day; encouraged patient on changes she has already made (switching to zero sugar soda) [id number] MD Azam Gomez (Adult Med) [address] [place] [address] 11/17/2022 11:11:47 11/21/2022 16:03:24 Renewal of prescription 874772182 Z76.0 Congestive heart failure 67695486 I50.9 stablept to continue furosemide 1-1 1/2tab daily / Aldactone .monitor kidney function- pt sees cardio Hypothyroidism 45468157 E03.9 stablecont inue levothyrox ine Paroxysmal atrial flutter 409349791 I48.92 continue coumadin as directed-T ried to get approval for Direct oral anticoagul ant for pt and her insurance denied it [id number] MD Azam WAGNER (STEREOTYPE FINISHER) [address] [place] [address] 11/20/2022 13:33:16 11/23/2022 10:35:23 Lichen sclerosus of vulva 106316259 N90.4 - 05/24/22: Discontinu ed betamethas one ointment and started clobetasol . Advised patient to use ointment daily even if not feeling a flare. Discussed risk for vulvar cancer with uncontroll ed lichen sclerosus with patient and recommende d referral to vulvar specialist ; however, patient declined at visit and said she would prefer to continue with more conservati ve management .- 08/21/22: Start maintenanc e treatment with clobetasol M/W/F. Return to clinic in 3 months for follow up.- 11/20/22: Mild flare up - will increase frequency of ointment use to daily x2 weeks, then back to maintenanc e treatment. Body mass index 40+ - severely obese 072451897 Z68.41 - Continue dietary changes as previously discussed Essential hypertension 82667811 I10 - On furosemide for CHF- Patient reports elevated BP due to increased stress at home- Follow up with PCP for further management [id number] MD Azam WAGNER (STEREOTYPE FINISHER) [address] [place] [address] 05/24/2023 11:01:01 05/29/2023 10:05:55 Lichen sclerosus of vulva [id number] N90.4 - 05/24/22: Discontinu ed betamethas one ointment and started clobetasol . Advised patient to use ointment daily even if not feeling a flare. Discussed risk for vulvar cancer with uncontroll ed lichen sclerosus with patient and recommende d referral to vulvar specialist ; however, patient declined at visit and said she would prefer to continue with more conservati ve management .- 08/21/22: Start maintenanc e treatment with clobetasol M/W/F. Return to clinic in 3 months for follow up.- 11/20/22: Mild flare up - will increase frequency of ointment use to daily x2 weeks, then back to maintenanc e treatment. - 05/24/23: No longer using medication on a regular basis without symptoms. Reminded patient of treatment for flares, followed by maintenanc e treatment if having issues in the future. Return to clinic as needed. [id number] MD Azam Gomez (Adult Med) [address] [place] [address] 05/25/2023 11:08:50 05/29/2023 14:36:51 Congestive heart failure [id number] I50.9 stablept to continue furosemide 1-1 1/2tab daily / Aldactone .monitor kidney function- pt sees cardio Hypothyroidism 25749588 E03.9 stablecont inue levothyrox ine Hypoxia 751213269 R09.02 pt sees pulmo and is on oxygen Paroxysmal atrial flutter 231176764 I48.92 - pt is on coumadin Chronic renal failure 90 050600 N18.9 monitor renal function- referred to nephro -declined to see one Obesity 589894099 E66.9 [id number] MD Yvette Gomezhalto (Adult Med) [address] [place] [address] 11/30/2023 10:39:01 12/10/2023 13:19:29 Congestive heart failure 25379630 I50.9 -fairly stablept to continue furosemide pt to increase it to 1 1/2tab daily for 3-4 days with monitoring of wt - then go back to once a daypt is not taking Aldactone due to crf -may consider to restart aldactone if renal function permitsmon itor kidney function- pt sees cardio / pt to go to ER if sob or chest pain Hypothyroidism 36740144 E03.9 stablecont inue levothyrox ine Hypoxia 707476285 R09.02 pt sees pulmo and is on oxygen Paroxysmal atrial flutter 438011502 I48.92 - pt is on coumadin Screening mammography 24 608530 Z12.31 pt declined Screening for malignant neoplasm of colon 095978305 Z12.11 pt declined colonoscop y Renewal of prescription 613128100 Z76.0 Elevated blood-pressure reading without diagnosis of hypertension 696998469 R03.0 - pt is off of aldactonem onitor bp [id number] MD Yvette Gomezhalto (Adult Med) [address] [place] [address] 02/15/2024 08:19:35 02/19/2024 10:12:46 Congestive heart failure 59390803 I50.9 -fairly stablept to continue furosemide 40mg daily with close monitoring of kidney functionpt is not taking karendia due to high K -may consider to restart karendia if renal function permitsmon itor kidney function- pt sees cardio / pt to go to ER if sob or chest pain Chronic renal failure 90 709053 N18.9 monitor renal function- referred to nephro -pt has apt to see nephro in 3 days Hypothyroidism 14265045 E03.9 stablecont inue levothyrox ine Paroxysmal atrial flutter 496963245 I48.92 - pt is on coumadin Hypoxia 502275445 R09.02 pt sees pulmo and is on oxygen- pt is on augmantin for pneumonia Screening for malignant neoplasm of colon 590874636 Z12.11 pt declined colonoscop y [id number] [facility] [address] [place] [address] 02/21/2024 09:40:13 02/22/2024 17:12:09 Congestive heart failure 87794099 I50.9 - stablept to continue furosemide 40mg daily with close monitoring of kidney functionpt is not taking karendia due to high K -may consider to restart karendia if renal function/K permitsmon itor kidney function- pt sees cardio / pt to go to ER if sob or chest pain Chronic renal failure 90 671602 N18.9 pt started seeing nephro now Hypothyroidism 14324505 E03.9 stablecont inue levothyrox ine Paroxysmal atrial flutter 370261065 I48.92 - pt is on coumadin Hypoxia 848709169 R09.02 pt sees pulmo and is on oxygen [id number] [facility] [address] [place] [address] 05/29/2024 10:42:38 06/06/2024 17:04:43 Renewal of prescription 524282519 Z76.0 Congestive heart failure 51734380 I50.9 - stablept to continue furosemide 40mg daily with close monitoring of kidney functionpt is not taking karendia due to high K -may consider to restart karendia if renal function/K permitsmon itor kidney function- pt sees cardio Hypothyroidism 75372156 E03.9 stablecont inue levothyrox ine Chronic renal failure 90 489117 N18.9 pt started seeing nephro now Paroxysmal atrial flutter 001828635 I48.92 - pt is on coumadin [id number] [facility] [address] [place] [address] 06/26/2024 11:49:38 07/23/2024 15:23:42 Congestive heart failure 51632079 I50.9 -Uncontrol led-HFpEF- ECHO (02/26/24) : Normal LV size and systolic function on limited views. Estimated LVEF 60-65%.-GD MT:>ACEI: N/A>BB: N/A>AA: N/A-patien t is on furosemide therapy.-D aily weights:-F luid volume status: Hypervolem ic-patient agreeable to cardiologi st referral-C ontinue current therapy: Furosemide therapy-En couraged patient to weigh self daily-Advi sed patient to follow a low sodium diet-Trend BNP Pain of mu ltiple joints 02920839 M25.50 -patient was placed on tramadol therapy p.r.n. by previous PCP. Patient reports tramadol has been the only medication to control her chronic multiple joint pain. MANAGER ENVIRONMENTAL discussed risks of opioid therapy with patient's chronic health conditions including heart failure. Patient verbalized understand ing and would like to continue with therapy. -UDS completed and controlled substance agreement signed Patient to follow-up in 3 months [id number] Salvador Lundberg MD COUNTS INCLUDE 234 BEDS AT THE [facility] [place] [address] [place] [address] 07/01/2024 10:43:24 07/02/2024 15:26:13 Atherosclerosis of coronary artery without angina pectoris 5036959622 11798 I25.10 Chronic di astolic heart failure 498261130 I50.32 Paroxysmal atrial fibrillation 032309894 I48.0 Essential hypertension 09953591 I10 Mixed hyperlipidemia 267 111133 E78.2 Obstructiv e sleep apnea syndrome 43949811 G47.33 [id number] Salvador Lundberg MD COUNTS INCLUDE 234 BEDS AT THE [facility] [place] II [address] [place] [address] 08/12/2024 09:05:22 08/21/2024 11:00:36 Morbid obesity 492245656 E66.01 Paroxysmal atrial fibrillation 041929309 I48.0 Chronic di astolic heart failure 061864643 I50.32 Chronic ki dney disease stage 3B 176120233 N18.32 [id number] MD Azam Markham (Adult Med) [address] [place] [address] 09/11/2024 09:43:54 09/22/2024 14:05:23 Renewal of prescription 178231060 Z76.0 Mammogram declined 26663 5004 Z53.20 Bone densi ty scan declined 471609460 Z53.20 Low back pain 615774244 M54.50 -Patient reports previous PCP started her on tramadol for back pain and headaches. -Patient reports she did not try any other medication .-UDS, controlled substance agreement signed-Pat ient declined x rays, PT.-Contin ue current therapy: gabapentin 300mg PRN, Tramadol 50mg PRN-ER precaution s advised Infection of tooth 02828 4867 K04.7 -Patient to follow up with dentist-Pa maribell agreeable to treatment with penicillin 500mg q8 hours for 7 days. MANAGER ENVIRONMENTAL advised patient to consume OTC probiotic or yogurt while on antibiotic therapy.-P atient to return to clinic if symptoms worsen or do not improve. Mixed anxi ety and depressive disorder 415907805 F41.8 -Denies active suicidal or homicidal thoughts. Denies history of suicidal or homicidal thoughts.- Patient reports her mood is stable.-PH Q9 score: n/a-Patien t instructed to go to ER or call 911 or [phone] for crisis (e.g., suicidal behaviors, suicidal ideations, intent or plan emerge). Additional ly, patient has suicide hotline #.-No medication therapy-Ad vised patient to call clinic with questions Health Concerns Section Related Observation LastModified by Organization Detai ls LastModified Time None Recorded Concern Status LastModified by Organization Details LastModified Time None Recorded Advance Directives Directive N: Payers Insurance Date Sequence Insurance Name Policy Number Policy Rod Covered Member ID Rod Member ID Guarantor Name 09/10/2024 SLIDING FEE SCHEDULE - DISCOUNT Rosi Rodriges 05/25/2022 2 *SELF PAY* Jaison tahira Rodriges 05/24/2023 1 [place] Rosi Rodriges [id number] Rositahira Rodriges 11/09/2017 2 [employer] [facility] (MEDICARE SUPPLEMENT) Rositahira Rodriges [id number] Rositahira Rodriges 03/30/2015 1 [facility] [employer] - DIRECT (POS) [id number] Rosi [place]way [id number] Rosi K [place] 05/03/2015 1 [facility] [place] [id number] Rosi Finley [place] [id number] Rosi [place] 03/30/2015 2 COUNTS INCLUDE 234 BEDS AT THE [facility] RETIREE (PPO) Rosi Rodriges [id number] Rosi Rodriges 05/23/2016 1 [facility] - [facility] (PPO) [id number] Rosi Finley [place] [id number] Rosi Finley [place] 09/23/2024 1 [employer] [place] (MEDICARE REPLACEMENT/ADV ANTAGE - HMO) [id number] Rosi Finley [place] [id number] Rosi Finley [place] 11/20/2018 1 [place] Rosi Finley [place] [id number] Rosi Finley [place] 07/06/2017 1 [place] [id number] Rosi Finley [place] [id number] Rosi Finley [place] 09/11/2024 [place] [employer] - [facility] Rosi Finley [place] [id number] Rosi Finley [place] Notes Date Note Type Note Provider Name and Address Organization Details Recorded Time 05/29/2024 text/html CHF F/UReported bypatient.Functional Capacity:diastolic Dietary Compliance:complies to and understands diet Diuretic Use:extra diuretics used daily Alleviating Factors:relieved with oxygen; relieved with medication (furosemide) Associated Symptoms:no chest discomfort; no dyspneaNotes:pt has hypoxia due to CHF with atrial flutter.. Pt is on coumadin per cardio and also on oxygen with Furosemide. Echo did not show systolic dysfunction . pt had cardiac cath with acid concentrator and it was normal and pt was told to see surface grinding machine hand. pt is seeing pulmo as well.ThyroidReported bypatient.Quality:impr oving Context:history of hypothyroidism Modifying Factors:medication Associated Symptoms:no weight loss; no chest pain Pt is here for f/u . pt went to ER with sob , found to have acute on chronic respiratory failure with hypoxia and CHF . pt was rxed with IV lasix and also rxed for pneumonia with antibioitc and steroidpt is feeling better now , back to her baselinept is on tramadol , taking for shoulder pain, avoid nsaid since pt is on blood thinner . Dorian Barbour MD Attn: Accounting,[address] [facility], [place], [address], [facility] 05/29/2024 15:39:24 06/26/2024 text/html Patient presents to the clinic with acute complaint of increased lower extremity swelling. Patient was established with Dr. Lowry for primary care.Patient is established with Dr. Montejo for nephrologyPulmnologist : Dr. Guy Edema-Patient reports increased swelling for past 6 months-Patient was hospitalized in January for heart failure.-Patient was established with [facility].-Patient reports she has not had increased dyspnea. She stable on 3L oxygen-Patient reports she has been having to take 1 tablet daily of Lasix, or if she is more swollen she takes 2 tablets.-Hx of atrial fibrillation BELA PRATHER-OSCAR Attn: Accounting,[address] [facility], [place], [address], [facility] 07/23/2024 09:39:13 07/01/2024 text/html I had the pleasu re of seeing Rosi as a new consultation from Ms. Marlow for recommendation regarding evaluation management of heart failure. Very pleasant 74-year-old with cardiac history as outlined below. Reports stable dyspnea on 3 L oxygen secondary to COPD. Denies chest pain or pressure. Denies falls or bleeding diathesis. Denies palpitations, presyncope or syncope. No subjective awareness of atrial fibrillation. Cardiac history:- Reported history of ASD closure via sternotomy- Heart failure with preserved ejection fraction- Atrial fibrillation, likely persistent- COPD on 3 L home oxygen- Obstructive sleep apnea on CPAP- Hypertension- Mixed hyperlipidemia- Obesity- chronic kidney disease stage IIIB Labs:05/29/2024: HGB 12.8, WBC 6.1, platelet 212, glucose 84, BUN 25, creatinine 1.24, EGFR 46, sodium 140, potassium 4.1, chloride 98, CO2 29, AST 24, ALT 1207/: Total cholesterol 163, TG 128, HDL 39, LDL 101 Cardiac diagnostics:Transthora cic echocardiogram[facility] Technically difficult study, LVEF 60-65%, mitral valve not well-visualized, tricuspid valve not well visualized but no significant aortic or mitral valve pathology noted, no significant pulmonary hypertension reported Salvador Lundberg MD Attn: Accounting[address] [place], [address], [facility] 07/01/2024 13:45:10 08/12/2024 text/html HPI:Patient pres ents for follow-up. She has not had any chest pain or pressure. Currently taking furosemide 40 mg daily with intermittent dosing of 40 mg b.i.d. based on volume status. Lower extremity edema well controlled. Denies palpitations, presyncope or syncope. Denies any falls or bleeding diathesis. Cardiac history:- Reported history of ASD closure via sternotomy- Heart failure with preserved ejection fraction- Atrial fibrillation, likely persistent- COPD on 3 L home oxygen- Obstructive sleep apnea on CPAP- Hypertension- Mixed hyperlipidemia- Obesity- chronic kidney disease stage IIIB Cardiac diagnostics:[facility]: Technically difficult study, LVEF 60-65%, mitral valve not well-visualized, tricuspid valve not well visualized but no significant aortic or mitral valve pathology noted, no significant pulmonary hypertension reported Salvador Lundberg MD Attn: Accounting[address] [place], [address], [facility] 08/12/2024 14:35:08 09/11/2024 text/html Patient presents to the clinic to establish care. Patient was previously established with Dr. Lowry for primary care.Other providers:Cardiology-Melanie Almazanmonologist- Dr. Guy with [facility]-Dr. Montejo with [facility] -Medical Hx/Surgical Hx: Heart failure, CKD, hypothyroidism, anxiety, depression, HEAVEN, atrial flutter, COPD, PFO repair, and prediabetes. -Family hx:Mother: -malignant neoplasm of lung,Father: -car accidentMaternal Grandmother: -heart disease, diabetes mellitusMaternal Grandfather: -unknownPatern al Grandmother: -unknownPatern al Grandfather: -unknownfamily history of malignant neoplasm -Tobacco/Drug/Alcohol Use:Patient reports she occasionally used tobacco as a teenager.Denies history of drug use.Patient reports occasional alcohol use. Chicken pox: Patient reports history of chicken pox. 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
[2024-10-25 14:14] VITALS: BP 147/75; PULSE 92; RESP 20; TEMP 36.5; O2SAT 92
--- NOTE | 2024-10-25 15:10 | ED_ITS ---
HPI - Skin/Abscess/Foreign Bdy General Chief complaint: Skin/Abscess/Foreign Body Stated complaint: sores on leg Time Seen by Provider: 10/25/24 14:50 Source: patient, family and RN notes reviewed Mode of arrival: ambulatory Limitations: no limitations History of Present Illness HPI narrative: 74-year-old female presents Express Care complaining of rash on legs for last 3 days. Patient reports having a painful vesicular rash present on her right thigh. Patient states started near her right inguinal region now noticed that she has more lesions on her right knee right buttocks has a in rash on her right forearm. Patient denies any upper respiratory symptoms, fever, body aches, chills, nausea, vomiting, or any other symptoms. Patient denies any itchiness her allergy symptoms. Patient strain antibiotic ointment and anti fraction better without relief. Patient has a history of COPD and is on chronic O2. Related Data Home Medications ?Medication ?Instructions ?Recorded ?Confirmed ?Last Taken ?Type atorvastatin 20 mg tablet mg 10/25/24 Unknown History furosemide 40 mg tablet mg 10/25/24 Unknown History gabapentin 300 mg capsule mg 10/25/24 Unknown History levothyroxine 112 mcg tablet mcg 10/25/24 Unknown History potassium chloride 10 mEq meq PO 10/25/24 Unknown History tablet,extended release rivaroxaban 15 mg tablet (Xarelto) mg 10/25/24 Unknown History tramadol 50 mg tablet mg 10/25/24 Unknown History Allergies Allergy/AdvReac Type Severity Reaction Status Date / Time No Known Allergies Allergy Verified 10/25/24 14:21 Review of Systems Review of Systems: CONSTITUTIONAL: Denies fever, chills, or sweats. EYES: Denies visual changes, redness, or discharge. ENT: Denies rhinorrhea, congestion, sore throat, or otalgia. CARDIOVASCULAR: Denies chest pain, palpitations, or edema. RESPIRATORY: Denies cough or dyspnea. GASTROINTESTINAL: Denies abdominal pain, nausea, vomiting, or diarrhea. GENITOURINARY: Denies dysuria or hematuria. SKIN: Positive for rash. Negative for itching. MUSCULOSKELETAL: Denies back pain, joint pain, or myalgia. NEUROLOGIC: Denies headache, numbness, or weakness. PSYCHIATRIC: Denies anxiety or depression. All other systems reviewed are negative, except as documented in HPI. PMFSH Comments At the time of my signature, I reviewed and agree with the nursing past medical, surgical, social, and family history. There is no relevant family history pertinent to the patient complaint. Exam Narrative: GENERAL: This is a well-nourished, well-developed adult, in no apparent distress. They are non ill-appearing, nontoxic appearing. Patient is wearing a nasal cannula. HEAD: normocephalic, atraumatic. EYES: Sclera clear/white. EARS: External ears normal, NOSE: External nose normal THROAT: Mucous membranes moist, NECK: Neck supple CARDIOVASCULAR: Regular rate and rhythm without RESPIRATORY: Respiratory rate normal, respiratory effort nonlabored, no respiratory distress SKIN: There is it painful vesicular erythematous rash to the patient's right thigh, it appears to follow a dermatome and grouped. Rash to upper right thigh is covered in anti friction powder making it white in appearance. Another rash similar with over the patient's right knee. Painful vesicular rash patient's right upper buttocks. There is macular papular rash in patient's left forearm that her she reports is pruritic. It is nontender. No induration area of fluctuance. No exudate. NEURO: awake, alert, and oriented to person, place and time. There were no obvious focal neurologic abnormalities. EXTREMITIES: No joint tenderness, effusion, or edema noted. BACK: Nontender without deformity. No CVA tenderness. Course Course Emergency Course: Portions of this record may have been created with voice recognition software Level of Care: Express Care Visit Vital Signs Vital signs: Vital Signs Temperature 97.7 F 10/25/24 14:14 Pulse Rate 92 10/25/24 14:14 Respiratory Rate 10/25/24 14:14 Blood Pressure 147/75 H 10/25/24 14:14 Pulse Oximetry 92 10/25/24 14:14 Oxygen Delivery Nasal Cannula 10/25/24 14:14 Oxygen Flow Rate 3 10/25/24 14:14 Temperature 97.7 F 10/25/24 14:14 Pulse Rate 92 10/25/24 14:14 Respiratory Rate 10/25/24 14:14 Blood Pressure 147/75 H 10/25/24 14:14 Pulse Oximetry 92 10/25/24 14:14 Oxygen Delivery Nasal Cannula 10/25/24 14:14 Oxygen Flow Rate 3 10/25/24 14:14 Reviewed MDM - Skin/Abscess/Foreign Bdy MDM Narrative Medical decision making narrative: Patient's rash on right leg/buttocks is consistent with herpes zoster. Rash appears to follow a contiguous dermatome. Attempt to wash off most of the anti friction powder to further assess lesions near the right upper thigh, was unable to remove all of the powder. Rash on right forearm appears to be related to itching. No evidence of cellulitis. Does not appear this be disseminated, does not cross midline, patient is not immunocompromised. Patient denies any recent steroid use for her COPD. Will Prescribe acyclovir. Advised close follow-up with PCP if rash/lesion do not improved. Discussed physical exam findings. Advised supportive measures and signs/symptoms to go to the ER. Pt is appropriate for outpt treatment and f/u. Differential Diagnosis Differential diagnosis: Likely dermatophytosis, herpes zoster, cellulitis, eczema and other (Folliculitis) Critical Care Time Critical Care Time Critical Care Time: No Discharge Plan Discharge Clinical Impression: Herpes zoster Qualifiers: Herpes zoster complications: without complications Qualified Code(s): B02.9 - Zoster without complications Patient Disposition: Home Condition: Stable Instructions: Shingles (ED) Additional Instructions: Take the acyclovir as directed. Please keep the rash cover until it is dry and crusted over. Wash skin daily with mild soap and water. Avoid scratching her skin as this may increase the risk of infection. Wear loose fitting clothing. Follow with PCP in 3-5 days if is not get better. Develops any worsening redness, swelling, discharge, fevers, chest pain, difficulty breathing, or any other concerns please go to the ER immediately. Patient Language: Belarusian Prescriptions: New acyclovir 800 mg tablet 800 mg PO .5xD 10 Days Qty: 50 0RF Rx Instructions: Take 1 tablet by mouth 5 times a day for 10 days. No Action furosemide 40 mg tablet atorvastatin 20 mg tablet potassium chloride 10 mEq tablet extended release PO tramadol 50 mg tablet gabapentin 300 mg capsule levothyroxine 112 mcg tablet Xarelto 15 mg tablet Follow-up/Referrals: UNKNOWN,DOCTOR [Primary Care Provider] - Time of Disposition: 15:07
== END 2024-10-25 15:10 | disposition home or self-care (01) ==
DX: B02.9 Zoster without complications (principal); J44.9 Chronic obstructive pulmonary disease, unspecified; Z99.81 Dependence on supplemental oxygen; I48.91 Unspecified atrial fibrillation; E03.9 Hypothyroidism, unspecified
CPT/HCPCS: 99213; G0463